=== PATIENT | female | born 1965 | race Caucasian/White ===

== ENCOUNTER 2017-07-29 21:21 | Inpatient (IN) ==
[2017-07-30] MEDS ORDERED: Acetaminophen 325 MG TABLET PO PRN (02:51)
[2017-07-30] MEDS ORDERED: *HR* Dextrose 50 % in Water (Syg) 50 ML SYRINGE IVP PRN (02:57)
[2017-07-30] MEDS ORDERED: Dextrose Gel 15 GM/37.5 ML TUBE PO PRN (02:57)
[2017-07-30] MEDS ORDERED: D5% in Water 1,000 ML IVC PRN (02:57)
[2017-07-30] MEDS ORDERED: Ipratropium/Albuterol Neb 3 ML IH PRN (03:00)
[2017-07-30] MEDS: 0.9 % Sodium Chloride 1,000 ML IVC SCH ×2 (03:30→15:41)
[2017-07-30 04:53] LABS: BUN/Creatinine Ratio 16 (6-26); Blood Urea Nitrogen 17 mg/dL (6-20); Calcium 8.9 mg/dL (8.6-10.3); Carbon Dioxide 26 mEq/L (23-29); Chloride 101 mEq/L (98-107); Glucose 368 mg/dL (70-105); Magnesium 1.8 mg/dL (1.6-2.6); Osmolality,Calculated 297 (280-300); Potassium 3.8 mEq/L (3.5-5.1); Sodium 135 mEq/L (136-145); eGFR For African Americans > 60 (> 60); eGFR For Non-African Americans 55 (> 60)
[2017-07-30 05:00] LABS: Basophils % 0.2 %; Hematocrit 37.2 % (35.3-44.9); Hemoglobin 11.7 g/dL (11.5-15.4); Lymphocytes # 0.9 K/mcL (0.6-4.6); Lymphocytes % 9.2 %; Mean Corpuscular HGB Conc 31.5 g/dL (31.6-35.5); Mean Corpuscular Hemoglobin 26.2 pg (28.0-33.3); Mean Corpuscular Volume 83.2 fL (83.0-100.0); Mean Platelet Volume 9.9 fL (9.4-12.4); Monocytes % 0.4 %; Neutrophils # 8.8 K/mcL (1.6-8.9); Platelet Count 369 K/mcL (140-400); Red Blood Count 4.47 M/mcL (3.82-4.97); Red Cell Distribution Width 16.2 % (11.5-14.5); Segmented Neutrophils % 89.2 %
--- NOTE | 2017-07-30 05:09 | Internal Med History&Physical ---
Date of Encounter: 07/30/17 Time of Encounter: 02:00 Assessment and Plan (1) Altered mental status Current visit: Yes Status: Acute Probably due to UTI. Patient has similar problem with UTI previously. Head CT negative. - We will treat underlying UTI. - Continue closely monitor patient. - No local neuro deficits identified. Qualifiers: Altered mental status type: disorientation Qualified Code(s): R41.0 - Disorientation, unspecified (2) COPD (chronic obstructive pulmonary disease) Current visit: Yes Status: Acute Stable. No signs of exacerbation. Continue home medications. Qualifiers: COPD type: emphysema Emphysema type: unspecified Qualified Code(s): J43.9 - Emphysema, unspecified (3) Near syncope Current visit: Yes Status: Acute Patient has a generalized weakness and near syncope. Probably due to UTI. Vitals are stable at this point. However, need to rule out neuro-cardio etiology - Place patient on continuous cardiac monitoring - Echocardiogram - Duplex carotid bilaterally (4) DVT prophylaxis Current visit: Yes Status: Acute Heparin subcutaneously (5) UTI (urinary tract infection) Current visit: No Status: Acute Patient has recurrent UTI. Failed outpatient treatment. Will place patient on broad spectrum antibiotics with Zosyn. Follow-up urine culture Qualifiers: Urinary tract infection type: acute cystitis Hematuria presence: without hematuria Qualified Code(s): N30.00 - Acute cystitis without hematuria (6) CKD (chronic kidney disease) stage 3, GFR 30-59 ml/min Current visit: No Status: Chronic Stable. Creatinine is at baseline Internal Medicine - H&P: HPI Chief complaint: Altered mental status Admitted From: Home Plans for Post Hospital Care: Home History of present illness: Ms. Beauchamp is a 52 year old female with history of recurrent UTI, diabetes, CKD , and COPD presented to [place] emergency room for altered mental status and near syncope. Patient has history of recurrent UTI. Patient was treated with Rocephin and Cipro as outpatient but not effective. Patient has altered mental status, generalized weakness, and near syncope. Patient has similar symptoms when she has UTI several months ago. Patient was transferred to our hospital for further management. Past Med Surg Social Fam HX - Past Medical History Medical history: cancer, cardiomyopathy, COPD, diabetes, hypertension, renal disease, other Psychiatric history: bipolar - Social History Smoking Status: Current every day smoker Smokeless Tobacco Status: No Alcohol use: none Drug use: none - Family History Father Hx Family Cardiac Disorders: Yes (HTN, [place], hyperlipidemia) Hx Family Respiratory Disorders: No Hx Family Cancer: No Hx Family GI Disorders: No Hx Family Endocrine Disorder: No Hx Family Neuromuscular Disorders: No Hx Family Neurologic Disorders: No Hx Family HEENT Disorders: No Hx Family Autoimmune Disorders: No Mother Hx Family Cardiac Disorders: No Hx Family Respiratory Disorders: No Hx Family Cancer: Yes (Uterine) Hx Family GI Disorders: No Hx Family Endocrine Disorder: No Hx Family Neuromuscular Disorders: No Hx Family Neurologic Disorders: No Hx Family HEENT Disorders: No Hx Family Autoimmune Disorders: No Internal Medicine - H&P: Meds Benztropine [Cogentin] 1 mg PO BID 11/25/15 [History] Carvedilol [Coreg] 12.5 mg PO BID 11/25/15 [History] Esomeprazole Magnesium [Nexium] 40 mg PO QPM 11/25/15 [History] FLUoxetine HCl [Prozac] 80 mg PO DAILY 11/25/15 [History] Gabapentin [Neurontin] 600 mg PO TID 11/25/15 [History] Haloperidol [Haldol] 5 mg PO QAM 11/25/15 [History] Metformin HCl [Glucophage] 1,000 mg PO BID 11/25/15 [History] Montelukast [Singulair] 10 mg PO DAILY 11/25/15 [History] Oxycodone HCl 15 mg PO Q4-6H PRN 11/25/15 [History] Potassium Chloride [Klor-Con] 20 meq PO DAILY 11/25/15 [History] Prochlorperazine Maleate [Compazine] 10 mg PO Q6HR 11/25/15 [History] Theophylline Anhydrous [Theophylline] 300 mg PO BID 11/25/15 [History] Tizanidine HCl [Zanaflex] 4 mg PO TID PRN 11/25/15 [History] Insulin Aspart Prot/Insuln Asp [Novolog Mix 70-30 Flexpen Syrn] 30 unit SQ QPM 05/07/17 [History] Insulin Aspart Prot/Insuln Asp [Novolog Mix 70-30 Flexpen Syrn] 50 unit SQ QAM 05/07/17 [History] Insulin Regular, Human [Novolin R] 10 unit IJ TID 05/07/17 [History] LORazepam [Ativan] 0.5 mg PO BID PRN 05/07/17 [History] Calcium Carbonate [Calcium] 600 mg PO QDPC 05/08/17 [History] Haloperidol [Haldol] 2.5 mg PO QPM 05/08/17 [History] Megestrol Acetate [Megace] 40 mg PO TID PRN 05/08/17 [History] Multivitamin/Iron/Folic Acid [Centrum Complete Multivit Tab] 1 each PO QDPC 07/13 [History] Azithromycin [Zithromax] 250 mg PO Q24H #3 tablet 05/09/17 [Rx] Cefuroxime PO [Ceftin] 500 mg PO Q12HR #6 tablet 05/09/17 [Rx] Furosemide [Lasix] 20 mg PO DAILY #0 05/09/17 [Rx] Lactobacillus [Culturelle] 1 each PO BID #6 cap.sprink 05/09/17 [Rx] 3 Allergy/AdvReac Type Severity Reaction Status Date / Time iodine Allergy Nausea Verified 01/02/16 13:45 Sulfa (Sulfonamide Allergy Nausea Verified 01/02/16 13:45 Antibiotics) All Systems PM: A 10-system review of systems was performed and is negative for pertinent findings except as documented above in the HPI. - Constitutional Vitals: Temp Pulse Resp BP Pulse Ox 99.2 F 85 17 130/76 94 07/30/17 03:43 07/30/17 03:43 07/30/17 03:43 07/30/17 03:43 07/30/17 03:43 General appearance: Present: A&O X 2, no acute distress, answers questions appropriately - Head Head exam: Present: atraumatic, normocephalic - Eye Eye exam: Present: PERRL, conjuntiva pink, sclera anicteric Pupils: Present: PERRL - Neck Neck exam general surgery: Present: supple, trachea midline. Absent: lymphadenopathy - Respiratory Respiratory exam: Present: CTAB. Absent: accessory muscle use, rales, rhonchi, wheezes - Cardiovascular Cardiovascular exam: Present: RRR, +S1, +S2. Absent: diastolic murmur, gallop, rubs, systolic murmur - GI/Abdominal GI/Abdominal exam: Present: normal bowel sounds, soft, no peritoneal signs. Absent: distended, tenderness - Extremities Exam Extremities exam: Present: warm, radial pulses palpable and symmetrical. Absent : calf tenderness, cyanotic, pedal edema - Neurological Exam Neurological exam: Present: CN II-XII intact, oriented X3, no focal deficits. Absent: pronater drift, facial droop, speech deficit - Skin Skin exam: Present: dry, intact Internal Med - H&P Results - Labs CBC & Chem 7: 07/30/17 04:05 07/30/17 04:05 Labs: Short CBC 07/30/17 Range/Units 04:05 WBC 9.9 (4.3-11.1) K/mcL Hgb 11.7 (11.5-15.4) g/dL Hct 37.2 (35.3-44.9) % Plt Count 369 (140-400) K/mcL Neutrophils # 8.8 (1.6-8.9) K/mcL BMP 07/30/17 04:05 Sodium 135 L Potassium 3.8 Chloride 101 Carbon Dioxide 26 BUN 17 Creatinine 1.05 Glucose 368 H Calcium 8.9
[2017-07-30] MEDS: *HR* Heparin 5,000 UNIT/ML VIAL SQ SCH ×2 (06:18→19:31)
[2017-07-30] MEDS ORDERED: Piperacillin/Tazobactam 3.375 GM in D5% in Water (Mini-Bag+) 100 ML IVPB SCH (08:00)
[2017-07-30] MEDS: Insulin LISPRO 300 UNITS/3 ML VIAL SQ SCH ×4 (08:38→21:21)
[2017-07-30] MEDS: Piperacillin/Tazobactam 3.375 GM/200 ML BAG IVPB SCH ×2 (08:39→19:32)
[2017-07-30] MEDS ORDERED: Insulin DETEMIR 100 UNIT/ML X5UNITS SQ SCH (09:00)
[2017-07-30] MEDS ORDERED: tiZANidine 4 MG TABLET PO PRN (10:59)
[2017-07-30] MEDS ORDERED: *HR* OxyCODONE Immed Rel 15 MG TABLET PO PRN (10:59)
[2017-07-30] MEDS ORDERED: Albuterol Neb 0.63 MG/3 ML VIAL IH PRN (10:59)
[2017-07-30] MEDS ORDERED: *HR* LORazepam 0.5 MG TABLET PO PRN (10:59)
--- NOTE | 2017-07-30 11:13 | Event Note ---
Date of Encounter: 07/30/17 Time of Encounter: 11:09 52/female PCP: Nurse ramone Ellison Brief past medical history: COPD, diabetes, hypertension, cardiomyopathy, coronary artery disease, History of present medical illness: Patient has multiple episodes in the past of a urinary tract infection. Patient was supposed to see urologist yesterday. Just before patient get out of her house to see the urologist, it was noted by patient's that patient has altered mental status. Patient's ' s is aware with this kind of mental change is related to the urinary tract infection from the previous experiences. He called squad and brought the patient to the hospital for further evaluation. Patient was seen at [facility] emergency room. Patient was transferred to this hospital for further evaluation. This morning upon my evaluation patient is alert and oriented 3. Patient's is at bedside. A brief general examination along with the examination of cardiovascular/ respiratory/abdominal system is within normal limits. Assessment: Recurrent urinary tract infection in a patient with the multiple comorbid conditions. Plan: We will continue IV Zosyn at this time. We will resume home medication. Possible urology consult tomorrow. Plan discussed with the patient and patient's . They verbalized understanding.
[2017-07-30] MEDS ORDERED: Insulin Regular, Human 100 UNIT/ML SQ SCH (15:00)
[2017-07-30] MEDS: Insulin NPH/REG 70/30 100 UNIT/ML (x5UNIT) SQ SCH (19:31)
[2017-07-30] MEDS: Gabapentin 300 MG CAPSULE PO SCH ×2 (19:35→20:43)
[2017-07-30] MEDS: GuaiFENesin Liq 200 MG/10 ML UDC PO SCH (20:44)
[2017-07-31] MEDS: Piperacillin/Tazobactam 3.375 GM/200 ML BAG IVPB SCH ×4 (01:19→23:53)
[2017-07-31 05:40] LABS: Basophils # 0.1 K/mcL (0.0-0.2); Basophils % 0.3 %; Eosinophils # 0.1 K/mcL (0.0-0.6); Eosinophils % 0.5 %; Hematocrit 39.5 % (35.3-44.9); Hemoglobin 12.7 g/dL (11.5-15.4); Immature Granulocytes % 0.6 % (0-4); Lymphocytes # 1.1 K/mcL (0.6-4.6); Lymphocytes % 6.1 %; Mean Corpuscular HGB Conc 32.2 g/dL (31.6-35.5); Mean Corpuscular Hemoglobin 26.7 pg (28.0-33.3); Mean Corpuscular Volume 83.2 fL (83.0-100.0); Mean Platelet Volume 9.4 fL (9.4-12.4); Monocytes # 0.8 K/mcL (0.0-1.3); Monocytes % 4.4 %; Neutrophils # 15.2 K/mcL (1.6-8.9); Platelet Count 352 K/mcL (140-400); Red Blood Count 4.75 M/mcL (3.82-4.97); Red Cell Distribution Width 16.6 % (11.5-14.5); Segmented Neutrophils % 88.1 %
[2017-07-31 05:41] LABS: Alanine Aminotransferase 11 Units/L (7-52); Albumin 3.7 g/dL (3.5-5.7); Albumin/Globulin Ratio 1.4 (1.1-2.2); Alkaline Phosphatase 95 Units/L (34-104); Aspartate Amino Transferase 12 Units/L (13-39); BUN/Creatinine Ratio 15 (6-26); Bilirubin,Total 0.4 mg/dL (0.3-1.0); Blood Urea Nitrogen 14 mg/dL (6-20); Carbon Dioxide 29 mEq/L (23-29); Chloride 107 mEq/L (98-107); Globulin 2.6 g/dL (2.4-3.5); Glucose 116 mg/dL (70-105); Osmolality,Calculated 295 (280-300); Potassium 3.4 mEq/L (3.5-5.1); Sodium 142 mEq/L (136-145); Total Protein 6.3 g/dL (6.4-8.9); eGFR For African Americans > 60 (> 60); eGFR For Non-African Americans > 60 (> 60)
[2017-07-31] MEDS: *HR* Heparin 5,000 UNIT/ML VIAL SQ SCH ×2 (06:18→16:39)
[2017-07-31] MEDS: Insulin LISPRO 300 UNITS/3 ML VIAL SQ SCH ×4 (07:43→20:54)
[2017-07-31] MEDS: Furosemide 40 MG TABLET PO SCH ×2 (10:00→11:01)
[2017-07-31] MEDS: GuaiFENesin Liq 200 MG/10 ML UDC PO SCH ×3 (10:00→19:59)
[2017-07-31] MEDS: FLUoxetine 20 MG CAPSULE PO SCH ×2 (10:00→11:01)
[2017-07-31] MEDS: Gabapentin 300 MG CAPSULE PO SCH ×3 (10:01→20:00)
[2017-07-31] MEDS: Insulin NPH/REG 70/30 100 UNIT/ML (x5UNIT) SQ SCH ×2 (10:29→16:40)
--- NOTE | 2017-07-31 16:13 | Internal Med Progress Note ---
Date of Encounter: 07/31/17 Time of Encounter: 16:10 - Assessment and plan (1) UTI (urinary tract infection) Current Visit: No Status: Acute Assessment and plan: Patient was evaluated in the emergency room at [facility]. She was transferred here for altered mental status. Patient is known to have altered mental status when she has underlying urinary tract infection. This is a fourth episode of urinary tract infection. Previous UTI showed Escherichia coli pansensitive strain. This episode urine culture positive for gram-negative bradford. Patient is presently on Zosyn. In view of the recurrent urinary tract infection and underlying malignancy I called urology for further evaluation Qualifiers: Urinary tract infection type: acute cystitis Hematuria presence: without hematuria Qualified Code(s): N30.00 - Acute cystitis without hematuria (2) Altered mental status Current Visit: Yes Status: Acute Assessment and plan: Likely secondary to urinary tract infection/urosepsis Qualifiers: Altered mental status type: disorientation Qualified Code(s): R41.0 - Disorientation, unspecified (3) Lung cancer Current Visit: No Status: Acute Assessment and plan: Follow with oncology Qualifiers: Laterality: unspecified laterality Lung location: unspecified part of lung Qualified Code(s): C34.90 - Malignant neoplasm of unspecified part of unspecified bronchus or lung (4) Diabetes type 2, uncontrolled Current Visit: No Status: Chronic Assessment and plan: Uncontrolled diabetes mellitus Presently on subcutaneous insulin. Qualifiers: Diabetes mellitus complication status: with unspecified complications Diabetes mellitus fci insulin use: unspecified intermediate school teacher insulin use status Qualified Code(s): E11.8 - Type 2 diabetes mellitus with unspecified complications; E11.65 - Type 2 diabetes mellitus with hyperglycemia; E11.65 - Type 2 diabetes mellitus with hyperglycemia; E11.65 - Type 2 diabetes mellitus with hyperglycemia; E11.65 - Type 2 diabetes mellitus with hyperglycemia - Subjective Interval history: Patient seen and examined. Chart reviewed. patient is comfortably lying in the bed. Patient at bedside. - Constitutional Vitals: Temp Pulse Resp BP Pulse Ox 98.2 F 87 16 138/77 90 07/31/17 15:33 07/31/17 15:33 07/31/17 15:33 07/31/17 15:33 07/31/17 15:33 General appearance: Present: A&O X 2, no acute distress, answers questions appropriately - Head Head exam: Present: atraumatic, normocephalic - Eye Eye exam: Present: PERRL, conjuntiva pink, sclera anicteric Pupils: Present: PERRL - Neck Neck exam general surgery: Present: supple, trachea midline. Absent: lymphadenopathy - Respiratory Respiratory exam: Present: CTAB. Absent: accessory muscle use, rales, rhonchi, wheezes - Cardiovascular Cardiovascular exam: Present: RRR, +S1, +S2. Absent: diastolic murmur, gallop, rubs, systolic murmur - GI/Abdominal GI/Abdominal exam: Present: normal bowel sounds, soft, no peritoneal signs. Absent: distended, tenderness - Extremities Exam Extremities exam: Present: warm, radial pulses palpable and symmetrical. Absent : calf tenderness, cyanotic, pedal edema - Neurological Exam Neurological exam: Present: CN II-XII intact, oriented X3, no focal deficits. Absent: pronater drift, facial droop, speech deficit - Skin Skin exam: Present: dry, intact Internal Medicine: Result - Labs CBC & Chem 7: 07/31/17 05:10 07/31/17 05:10 Labs: Short CBC 07/31/17 Range/Units 05:10 WBC 17.2 H D (4.3-11.1) K/mcL Hgb 12.7 (11.5-15.4) g/dL Hct 39.5 (35.3-44.9) % Plt Count 352 (140-400) K/mcL Neutrophils # 15.2 H (1.6-8.9) K/mcL BMP 07/31/17 05:10 Sodium 142 Potassium 3.4 L Chloride 107 Carbon Dioxide 29 BUN 14 Creatinine 0.95 Glucose 116 H Calcium 9.0 Liver Function 07/31/17 Range/Units 05:10 Total Bilirubin 0.4 (0.3-1.0) mg/dL AST 12 L (13-39) Units/L ALT 11 (7-52) Units/L Alkaline Phosphatase 95 (34-104) Units/L Albumin 3.7 (3.5-5.7) g/dL Consult Discharge Plan - Plan Referrals: Emmanuelle Ellison, HAT BINDER [Primary Care Provider] - 08/06/17 10:00 am (please follow up with Darlene Santana at [email or web address])
--- NOTE | 2017-07-31 17:20 | Urology - Consult Note ---
Date of Encounter: 07/31/17 Time of Encounter: 17:18 - Assessment and Plan (1) Recurrent UTI Current Visit: Yes Status: Acute Assessment and plan: Patient does not arouse enough to answer questions at this time. I am going to obtain a CT abdomen and pelvis for evaluation of cause for recurrent urinary tract infections. Patient does have a questionable history of a stroke as well as poorly controlled diabetes both of which are risk factors for urinary retention and then recurrent urinary tract infections. (2) UTI (urinary tract infection) Current Visit: No Status: Acute Assessment and plan: await cultures for defenitive tx. agree with broad spectrum abx. Qualifiers: Urinary tract infection type: acute cystitis Hematuria presence: without hematuria Qualified Code(s): N30.00 - Acute cystitis without hematuria Urology CN:HPI Consult date: 07/31/17 Reason for consult Urology: Other (recurrent uti) Requesting physician: Jose Roberto Barrera History of present illness: Johana is a 52-year-old female with history of 3 separate admissions for urinary tract infections. Patient with mental status changes with these infections. Patient does not arouse enough to answer questions today. No prior upper tract imaging seen in the record. Patient also with poorly controlled diabetes. Past Med Surg Social Fam HX - Past Medical History Medical history: cancer, cardiomyopathy, COPD, diabetes, hypertension, renal disease, other Psychiatric history: bipolar - Social History Smoking Status: Current every day smoker Smokeless Tobacco Status: No Alcohol use: none Drug use: none - Family History Father Hx Family Cardiac Disorders: Yes (HTN, [place], hyperlipidemia) Hx Family Respiratory Disorders: No Hx Family Cancer: No Hx Family GI Disorders: No Hx Family Endocrine Disorder: No Hx Family Neuromuscular Disorders: No Hx Family Neurologic Disorders: No Hx Family HEENT Disorders: No Hx Family Autoimmune Disorders: No Mother Hx Family Cardiac Disorders: No Hx Family Respiratory Disorders: No Hx Family Cancer: Yes (Uterine) Hx Family GI Disorders: No Hx Family Endocrine Disorder: No Hx Family Neuromuscular Disorders: No Hx Family Neurologic Disorders: No Hx Family HEENT Disorders: No Hx Family Autoimmune Disorders: No Medications and Allergies Benztropine [Cogentin] 1 mg PO BID 11/25/15 [History] Carvedilol [Coreg] 12.5 mg PO BID 11/25/15 [History] Esomeprazole Magnesium [Nexium] 40 mg PO HS 11/25/15 [History] FLUoxetine HCl [Prozac] 80 mg PO DAILY 11/25/15 [History] Gabapentin [Neurontin] 600 mg PO TID 11/25/15 [History] Haloperidol [Haldol] 5 mg PO QAM 11/25/15 [History] Metformin HCl [Glucophage] 1,000 mg PO BID 11/25/15 [History] Montelukast [Singulair] 10 mg PO DAILY 11/25/15 [History] Oxycodone HCl 15 mg PO Q8H PRN 11/25/15 [History] Potassium Chloride [Klor-Con] 20 meq PO DAILY 11/25/15 [History] Prochlorperazine Maleate [Compazine] 10 mg PO Q6HR PRN 11/25/15 [History] Theophylline Anhydrous [Theophylline] 300 mg PO BID 11/25/15 [History] Tizanidine HCl [Zanaflex] 4 mg PO TID PRN 11/25/15 [History] Insulin Aspart Prot/Insuln Asp [Novolog Mix 70-30 Flexpen Syrn] 30 unit SQ QPM 05/07/17 [History] Insulin Aspart Prot/Insuln Asp [Novolog Mix 70-30 Flexpen Syrn] 50 unit SQ QAM 05/07/17 [History] Insulin Regular, Human [Novolin R] 10 unit SQ TID 05/07/17 [History] LORazepam [Ativan] 0.5 mg PO BID PRN 05/07/17 [History] Calcium Carbonate [Calcium] 600 mg PO QDPC 05/08/17 [History] Haloperidol [Haldol] 2.5 mg PO HS 05/08/17 [History] Megestrol Acetate [Megace] 40 mg PO TID PRN 05/08/17 [History] Multivitamin/Iron/Folic Acid [Centrum Complete Multivit Tab] 1 each PO QDPC 07/13 [History] Albuterol Neb [AccuNeb] 0.63 mg IH Q6H PRN 07/30/17 [History] Albuterol Sulfate [Proair Hfa] 2 puff IH Q4H PRN 07/30/17 [History] Furosemide [Lasix] 40 mg PO DAILY 07/30/17 [History] Nitrofurantoin (BID) [Macrobid] 100 mg PO DAILY 07/30/17 [History] guaiFENesin [Guaifenesin] 400 mg PO BID 07/30/17 [History] 3 Allergy/AdvReac Type Severity Reaction Status Date / Time iodine Allergy Nausea Verified 01/02/16 13:45 Sulfa (Sulfonamide Allergy Nausea Verified 01/02/16 13:45 Antibiotics) Review of Systems ROS unobtainable: due to mental status Exam Initial Vital Signs Temp Pulse Resp BP Pulse Ox 98.3 F 90 17 134/81 93 07/29/17 23:05 07/29/17 23:05 07/29/17 23:05 07/29/17 23:05 07/29/17 23:05 - General physical appearance Present: other (sleepy) - Eyes Absent: icteric - Neck Present: no lymphadenopathy - Respiratory Present: normal respiratory effort - Cardiovascular Cardiovascular exam IM: RRR - Abdomen Abdomen: Present: soft. Absent: masses - Integumentary Present: no rash, no abnormal pigmentation Urology Results - Labs 07/31/17 05:10 07/31/17 05:10 Abnormal lab results WBC 17.2 K/mcL (4.3-11.1) H D 07/31/17 05:10 MCH 26.7 pg (28.0-33.3) L 07/31/17 05:10 RDW 16.6 % (11.5-14.5) H 07/31/17 05:10 Neutrophils # 15.2 K/mcL (1.6-8.9) H 07/31/17 05:10 Potassium 3.4 mEq/L (3.5-5.1) L 07/31/17 05:10 Glucose 116 mg/dL (70-105) H 07/31/17 05:10 POC Glucose 106 (58-89) H 07/31/17 16:29 AST 12 Units/L (13-39) L 07/31/17 05:10 Serum Total Protein 6.3 g/dL (6.4-8.9) L 07/31/17 05:10 Diabetes panel 07/31/17 Range/Units 05:10 Sodium 142 (136-145) mEq/L Potassium 3.4 L (3.5-5.1) mEq/L Chloride 107 (98-107) mEq/L Carbon Dioxide 29 (23-29) mEq/L BUN 14 (6-20) mg/dL Creatinine 0.95 (0.60-1.20) mg/dL Glucose 116 H (70-105) mg/dL Calcium 9.0 (8.6-10.3) mg/dL AST 12 L (13-39) Units/L ALT 11 (7-52) Units/L Alkaline Phosphatase 95 (34-104) Units/L Albumin 3.7 (3.5-5.7) g/dL Calcium panel 07/31/17 Range/Units 05:10 Calcium 9.0 (8.6-10.3) mg/dL Albumin 3.7 (3.5-5.7) g/dL Pituitary panel 07/31/17 Range/Units 05:10 Sodium 142 (136-145) mEq/L Potassium 3.4 L (3.5-5.1) mEq/L Chloride 107 (98-107) mEq/L Carbon Dioxide 29 (23-29) mEq/L BUN 14 (6-20) mg/dL Creatinine 0.95 (0.60-1.20) mg/dL Glucose 116 H (70-105) mg/dL Calcium 9.0 (8.6-10.3) mg/dL Adrenal panel 07/31/17 Range/Units 05:10 Sodium 142 (136-145) mEq/L Potassium 3.4 L (3.5-5.1) mEq/L Chloride 107 (98-107) mEq/L Carbon Dioxide 29 (23-29) mEq/L BUN 14 (6-20) mg/dL Creatinine 0.95 (0.60-1.20) mg/dL Glucose 116 H (70-105) mg/dL Calcium 9.0 (8.6-10.3) mg/dL Total Bilirubin 0.4 (0.3-1.0) mg/dL AST 12 L (13-39) Units/L ALT 11 (7-52) Units/L Alkaline Phosphatase 95 (34-104) Units/L Albumin 3.7 (3.5-5.7) g/dL All other labs normal. Consult Discharge Plan - Plan Referrals: Emmanuelle Ellison, SPRIGGER [Primary Care Provider] - 08/06/17 10:00 am (please follow up with Darlene Santana at [email or web address])
[2017-08-01 03:58] LABS: Basophils % 0.5 %; Eosinophils # 0.3 K/mcL (0.0-0.6); Eosinophils % 3.1 %; Hematocrit 36.2 % (35.3-44.9); Immature Granulocytes % 0.6 % (0-4); Lymphocytes # 1.9 K/mcL (0.6-4.6); Lymphocytes % 24.3 %; Mean Corpuscular HGB Conc 30.7 g/dL (31.6-35.5); Mean Corpuscular Hemoglobin 26.1 pg (28.0-33.3); Mean Platelet Volume 8.9 fL (9.4-12.4); Monocytes # 0.7 K/mcL (0.0-1.3); Monocytes % 8.2 %; Platelet Count 303 K/mcL (140-400); Red Blood Count 4.26 M/mcL (3.82-4.97); Red Cell Distribution Width 16.9 % (11.5-14.5); Segmented Neutrophils % 63.3 %
[2017-08-01 04:04] LABS: Hemoglobin 11.1 g/dL (11.5-15.4); Neutrophils # 5.1 K/mcL (1.6-8.9)
[2017-08-01 04:33] LABS: Alanine Aminotransferase 8 Units/L (7-52); Albumin 3.1 g/dL (3.5-5.7); Albumin/Globulin Ratio 1.2 (1.1-2.2); Alkaline Phosphatase 74 Units/L (34-104); Aspartate Amino Transferase 9 Units/L (13-39); BUN/Creatinine Ratio 17 (6-26); Bilirubin,Total 0.4 mg/dL (0.3-1.0); Blood Urea Nitrogen 17 mg/dL (6-20); Calcium 8.4 mg/dL (8.6-10.3); Carbon Dioxide 28 mEq/L (23-29); Chloride 108 mEq/L (98-107); Globulin 2.6 g/dL (2.4-3.5); Glucose 114 mg/dL (70-105); Osmolality,Calculated 296 (280-300); Potassium 3.4 mEq/L (3.5-5.1); Sodium 142 mEq/L (136-145); Total Protein 5.7 g/dL (6.4-8.9); eGFR For African Americans > 60 (> 60); eGFR For Non-African Americans 57 (> 60)
[2017-08-01] MEDS: *HR* Heparin 5,000 UNIT/ML VIAL SQ SCH ×2 (05:45→17:13)
[2017-08-01] MEDS: Insulin LISPRO 300 UNITS/3 ML VIAL SQ SCH ×4 (07:27→21:31)
[2017-08-01] MEDS: Piperacillin/Tazobactam 3.375 GM/200 ML BAG IVPB SCH ×3 (07:34→23:14)
--- NOTE | 2017-08-01 08:04 | Urology Progress Note ---
Date of Encounter: 08/01/17 Time of Encounter: 08:04 - Assessment and Plan (1) Recurrent UTI Current Visit: Yes Status: Acute Assessment and plan: Broad-spectrum antibiotics at this time until culture returns. Patient will need follow-up with urology office after discharge for evaluation of recurrent urinary tract infections. (2) UTI (urinary tract infection) Current Visit: No Status: Acute Qualifiers: Urinary tract infection type: acute cystitis Hematuria presence: without hematuria Qualified Code(s): N30.00 - Acute cystitis without hematuria Progress Note Narrative: Johana is a 52-year-old female with a history of recurrent urinary tract infections. CT scan done yesterday revealed air within the bladder. Urine culture reveals gram-negative rods. Objective Initial Vital Signs Temp Pulse Resp BP Pulse Ox 98.3 F 90 17 134/81 93 07/29/17 23:05 07/29/17 23:05 07/29/17 23:05 07/29/17 23:05 07/29/17 23:05 - General physical appearance Present: well developed - Abdomen Present: soft. Absent: masses - Labs 08/01/17 03:40 08/01/17 03:40 Diabetes panel 08/01/17 Range/Units 03:40 Sodium 142 (136-145) mEq/L Potassium 3.4 L (3.5-5.1) mEq/L Chloride 108 H (98-107) mEq/L Carbon Dioxide 28 (23-29) mEq/L BUN 17 (6-20) mg/dL Creatinine 1.01 (0.60-1.20) mg/dL Glucose 114 H (70-105) mg/dL Calcium 8.4 L (8.6-10.3) mg/dL AST 9 L (13-39) Units/L ALT 8 (7-52) Units/L Alkaline Phosphatase 74 (34-104) Units/L Albumin 3.1 L (3.5-5.7) g/dL Calcium panel 08/01/17 Range/Units 03:40 Calcium 8.4 L (8.6-10.3) mg/dL Albumin 3.1 L (3.5-5.7) g/dL Pituitary panel 08/01/17 Range/Units 03:40 Sodium 142 (136-145) mEq/L Potassium 3.4 L (3.5-5.1) mEq/L Chloride 108 H (98-107) mEq/L Carbon Dioxide 28 (23-29) mEq/L BUN 17 (6-20) mg/dL Creatinine 1.01 (0.60-1.20) mg/dL Glucose 114 H (70-105) mg/dL Calcium 8.4 L (8.6-10.3) mg/dL Adrenal panel 08/01/17 Range/Units 03:40 Sodium 142 (136-145) mEq/L Potassium 3.4 L (3.5-5.1) mEq/L Chloride 108 H (98-107) mEq/L Carbon Dioxide 28 (23-29) mEq/L BUN 17 (6-20) mg/dL Creatinine 1.01 (0.60-1.20) mg/dL Glucose 114 H (70-105) mg/dL Calcium 8.4 L (8.6-10.3) mg/dL Total Bilirubin 0.4 (0.3-1.0) mg/dL AST 9 L (13-39) Units/L ALT 8 (7-52) Units/L Alkaline Phosphatase 74 (34-104) Units/L Albumin 3.1 L (3.5-5.7) g/dL Consult Discharge Plan - Plan Referrals: Emmanuelle Ellison, NAVAL ARCHITECT [Primary Care Provider] - 08/06/17 10:00 am (please follow up with Darlene Santana at [email or web address])
[2017-08-01] MEDS: Gabapentin 300 MG CAPSULE PO SCH ×3 (09:56→21:16)
[2017-08-01] MEDS: Furosemide 40 MG TABLET PO SCH (09:56)
[2017-08-01] MEDS: Insulin NPH/REG 70/30 100 UNIT/ML (x5UNIT) SQ SCH ×2 (09:57→17:13)
[2017-08-01] MEDS: FLUoxetine 20 MG CAPSULE PO SCH (09:57)
[2017-08-01] MEDS: GuaiFENesin Liq 200 MG/10 ML UDC PO SCH ×2 (09:58→21:17)
[2017-08-01] MEDS: Dextrose Gel 15 GM/37.5 ML TUBE PO PRN (21:11)
[2017-08-02] MEDS: *HR* Heparin 5,000 UNIT/ML VIAL SQ SCH ×2 (05:28→16:47)
--- NOTE | 2017-08-02 08:48 | Urology Progress Note ---
Date of Encounter: 08/02/17 Time of Encounter: 08:48 - Assessment and Plan (1) Recurrent UTI Current Visit: Yes Status: Acute Assessment and plan: may need to consider getting infectious disease involved given the severe resistance her last culture showed. will continue to follow. (2) UTI (urinary tract infection) Current Visit: No Status: Acute Qualifiers: Urinary tract infection type: acute cystitis Hematuria presence: without hematuria Qualified Code(s): N30.00 - Acute cystitis without hematuria Progress Note Narrative: patient seen. asleep this am. cath urine obtained yesterday. last culture from 07/29/17 showed complete resistance to all tested abx. Objective Initial Vital Signs Temp Pulse Resp BP Pulse Ox 98.3 F 90 17 134/81 93 07/29/17 23:05 07/29/17 23:05 07/29/17 23:05 07/29/17 23:05 07/29/17 23:05 - General physical appearance Present: no distress - Abdomen Present: soft. Absent: masses - Labs 08/01/17 03:40 08/01/17 03:40 Consult Discharge Plan - Plan Referrals: Emmanuelle Ellison, CIVIL PROJECT ENGINEER [Primary Care Provider] - 08/06/17 10:00 am (please follow up with Darlene Santana at [place])
[2017-08-02] MEDS: FLUoxetine 20 MG CAPSULE PO SCH (09:59)
[2017-08-02] MEDS: GuaiFENesin Liq 200 MG/10 ML UDC PO SCH ×2 (10:00→20:26)
[2017-08-02] MEDS: Furosemide 40 MG TABLET PO SCH (10:00)
[2017-08-02] MEDS: Gabapentin 300 MG CAPSULE PO SCH ×3 (10:00→20:25)
[2017-08-02] MEDS: Insulin NPH/REG 70/30 100 UNIT/ML (x5UNIT) SQ SCH ×2 (10:00→16:47)
[2017-08-02] MEDS: Piperacillin/Tazobactam 3.375 GM/200 ML BAG IVPB SCH ×3 (10:01→23:54)
[2017-08-02] MEDS: Insulin LISPRO 300 UNITS/3 ML VIAL SQ SCH ×4 (10:01→21:54)
--- NOTE | 2017-08-02 18:40 | Internal Med Progress Note ---
Date of Encounter: 08/02/17 Time of Encounter: 18:40 - Assessment and plan (1) UTI (urinary tract infection) Current Visit: No Status: Acute Assessment and plan: Patient was evaluated in the emergency room at [facility]. She was transferred here for altered mental status. Patient is known to have altered mental status when she has underlying urinary tract infection. This is a fourth episode of urinary tract infection. Previous UTI showed Escherichia coli pansensitive strain. This episode urine culture positive for gram-negative bradford. Patient is presently on Zosyn. In view of the recurrent urinary tract infection and underlying malignancy I called urology for further evaluation 08/02/2017 As I mentioned this is a delayed entry. I have examined this patient on 08/01/2017 and please treat this note as a 2017's note. Noted that patient has a multi drug resistant organism in the urine. I discussed case with the infectious disease attending Dr. Bauer. We have sent repeat culture. Total number of urinary tract infection episodes: 4 Out of which one episode shows positive urine culture: Escherichia coli: Pansensitive. Patient is immunocompromised host in terms of underlying diabetes/lung cancer. Patient has responded excellent clinically to present treatment which is Zosyn. There is a possibility that patient might have some atelectasis/pneumonia/lung cancer itself in the left lower lobe. Case discussed with infectious disease and recommendations as follows. We will continue the present treatment over the weekend. If patient deteriorates then to add a fosfomycin. If patient continues to improve then we will continue the same treatment and infectious disease will see patient on Friday. Qualifiers: Urinary tract infection type: acute cystitis Hematuria presence: without hematuria Qualified Code(s): N30.00 - Acute cystitis without hematuria (2) Altered mental status Current Visit: Yes Status: Acute Assessment and plan: Likely secondary to urinary tract infection/urosepsis Patient's altered mental status has improved dramatically. Qualifiers: Altered mental status type: disorientation Qualified Code(s): R41.0 - Disorientation, unspecified (3) Lung cancer Current Visit: No Status: Acute Assessment and plan: Follow with oncology Qualifiers: Laterality: unspecified laterality Lung location: unspecified part of lung Qualified Code(s): C34.90 - Malignant neoplasm of unspecified part of unspecified bronchus or lung (4) Diabetes type 2, uncontrolled Current Visit: No Status: Chronic Assessment and plan: Uncontrolled diabetes mellitus Presently on subcutaneous insulin. Qualifiers: Diabetes mellitus complication status: with unspecified complications Diabetes mellitus rat exterminator insulin use: unspecified care home insulin use status Qualified Code(s): E11.8 - Type 2 diabetes mellitus with unspecified complications; E11.65 - Type 2 diabetes mellitus with hyperglycemia; E11.65 - Type 2 diabetes mellitus with hyperglycemia; E11.65 - Type 2 diabetes mellitus with hyperglycemia; E11.65 - Type 2 diabetes mellitus with hyperglycemia - Subjective Interval history: Patient seen and examined. Chart reviewed. patient is comfortably lying in the bed. Patient at bedside. 08/02/2017 This is a delayed entry. I have examined this patient on 08/01/2017. I was unable to write a note on the same day but I am completing the note in 24 hours. Patient is alert and more oriented as compared to yesterday. - Constitutional Vitals: Temp Pulse Resp BP Pulse Ox 97.9 F 91 16 79/50 97 08/02/17 15:42 08/02/17 15:42 08/02/17 15:42 08/02/17 15:42 08/02/17 15:42 General appearance: Present: A&O X 2, no acute distress, answers questions appropriately - Head Head exam: Present: atraumatic, normocephalic - Eye Eye exam: Present: PERRL, conjuntiva pink, sclera anicteric Pupils: Present: PERRL - Neck Neck exam general surgery: Present: supple, trachea midline. Absent: lymphadenopathy - Respiratory Respiratory exam: Present: CTAB. Absent: accessory muscle use, rales, rhonchi, wheezes - Cardiovascular Cardiovascular exam: Present: RRR, +S1, +S2. Absent: diastolic murmur, gallop, rubs, systolic murmur - GI/Abdominal GI/Abdominal exam: Present: normal bowel sounds, soft, no peritoneal signs. Absent: distended, tenderness - Extremities Exam Extremities exam: Present: warm, radial pulses palpable and symmetrical. Absent : calf tenderness, cyanotic, pedal edema - Neurological Exam Neurological exam: Present: CN II-XII intact, oriented X3, no focal deficits. Absent: pronater drift, facial droop, speech deficit - Skin Skin exam: Present: dry, intact Internal Medicine: Result - Labs CBC & Chem 7: 08/01/17 03:40 01/05/18 03:40 Consult Discharge Plan - Plan Referrals: Emmanuelle Ellison, EMBEDDED SYSTEMS ENGINEER [Primary Care Provider] - 08/06/17 10:00 am (please follow up with Darlene Santana at [place])
--- NOTE | 2017-08-02 18:48 | Internal Med Progress Note ---
Date of Encounter: 08/02/17 Time of Encounter: 18:45 - Assessment and plan (1) UTI (urinary tract infection) Current Visit: No Status: Acute Assessment and plan: Patient was evaluated in the emergency room at [facility]. She was transferred here for altered mental status. Patient is known to have altered mental status when she has underlying urinary tract infection. This is a fourth episode of urinary tract infection. Previous UTI showed Escherichia coli pansensitive strain. This episode urine culture positive for gram-negative bradford. Patient is presently on Zosyn. In view of the recurrent urinary tract infection and underlying malignancy I called urology for further evaluation 08/02/2017 As I mentioned this is a delayed entry. I have examined this patient on 08/01/2017 and please treat this note as a 2017's note. Noted that patient has a multi drug resistant organism in the urine. I discussed case with the infectious disease attending Dr. Bauer. We have sent repeat culture. Total number of urinary tract infection episodes: 4 Out of which one episode shows positive urine culture: Escherichia coli: Pansensitive. Patient is immunocompromised host in terms of underlying diabetes/lung cancer. Patient has responded excellent clinically to present treatment which is Zosyn. There is a possibility that patient might have some atelectasis/pneumonia/lung cancer itself in the left lower lobe. Case discussed with infectious disease and recommendations as follows. We will continue the present treatment over the weekend. If patient deteriorates then to add a fosfomycin. If patient continues to improve then we will continue the same treatment and infectious disease will see patient on Friday. 08/02/2017 Patient seen and examined today. Patient is more alert and oriented. Patient does not have any urinary symptoms. Patient has cough/shortness of breath/chest pain or hemoptysis Urine culture which was sent on 08/01/2017: No growth and this is the final report. Plan: Will continue present Zosyn for now. I will not disturb infectious disease on a weekend. But I will continue this intravenous Zosyn for her next 48 hours and will update ID on Friday. Qualifiers: Urinary tract infection type: acute cystitis Hematuria presence: without hematuria Qualified Code(s): N30.00 - Acute cystitis without hematuria (2) Altered mental status Current Visit: Yes Status: Acute Assessment and plan: Likely secondary to urinary tract infection/urosepsis Patient's altered mental status has improved dramatically. Qualifiers: Altered mental status type: disorientation Qualified Code(s): R41.0 - Disorientation, unspecified (3) Lung cancer Current Visit: No Status: Acute Assessment and plan: Follow with oncology Qualifiers: Laterality: unspecified laterality Lung location: unspecified part of lung Qualified Code(s): C34.90 - Malignant neoplasm of unspecified part of unspecified bronchus or lung (4) Diabetes type 2, uncontrolled Current Visit: No Status: Chronic Assessment and plan: Uncontrolled diabetes mellitus Presently on subcutaneous insulin. Qualifiers: Diabetes mellitus complication status: with unspecified complications Diabetes mellitus manager terminal insulin use: unspecified retirement insulin use status Qualified Code(s): E11.8 - Type 2 diabetes mellitus with unspecified complications; E11.65 - Type 2 diabetes mellitus with hyperglycemia; E11.65 - Type 2 diabetes mellitus with hyperglycemia; E11.65 - Type 2 diabetes mellitus with hyperglycemia; E11.65 - Type 2 diabetes mellitus with hyperglycemia - Subjective Interval history: Patient seen and examined. Chart reviewed. patient is comfortably lying in the bed. Patient at bedside. 08/02/2017 This is a delayed entry. I have examined this patient on 08/01/2017. I was unable to write a note on the same day but I am completing the note in 24 hours. Patient is alert and more oriented as compared to yesterday. 08/02/2017 I have examined this patient today. Patient's was at bedside. I have explained patient's regarding MDRO Klebsiella pneumonia. Patient is more alert and oriented then past 2 days. - Constitutional Vitals: Temp Pulse Resp BP Pulse Ox 97.9 F 91 16 79/50 97 08/02/17 15:42 08/02/17 15:42 08/02/17 15:42 08/02/17 15:42 08/02/17 15:42 General appearance: Present: A&O X 2, no acute distress, answers questions appropriately - Head Head exam: Present: atraumatic, normocephalic - Eye Eye exam: Present: PERRL, conjuntiva pink, sclera anicteric Pupils: Present: PERRL - Neck Neck exam general surgery: Present: supple, trachea midline. Absent: lymphadenopathy - Respiratory Respiratory exam: Present: CTAB. Absent: accessory muscle use, rales, rhonchi, wheezes - Cardiovascular Cardiovascular exam: Present: RRR, +S1, +S2. Absent: diastolic murmur, gallop, rubs, systolic murmur - GI/Abdominal GI/Abdominal exam: Present: normal bowel sounds, soft, no peritoneal signs. Absent: distended, tenderness - Extremities Exam Extremities exam: Present: warm, radial pulses palpable and symmetrical. Absent : calf tenderness, cyanotic, pedal edema - Neurological Exam Neurological exam: Present: CN II-XII intact, oriented X3, no focal deficits. Absent: pronater drift, facial droop, speech deficit - Skin Skin exam: Present: dry, intact Internal Medicine: Result - Labs CBC & Chem 7: 08/01/17 03:40 08/01/17 03:40 Consult Discharge Plan - Plan Referrals: Emmanuelle Ellison, ENDLESS STEAMER TENDER [Primary Care Provider] - 08/06/17 10:00 am (please follow up with Darlene Santana at [place])
[2017-08-02] MEDS: Dextrose Gel 15 GM/37.5 ML TUBE PO PRN (21:51)
[2017-08-03] MEDS: *HR* Heparin 5,000 UNIT/ML VIAL SQ SCH ×2 (05:48→18:36)
[2017-08-03] MEDS: Insulin NPH/REG 70/30 100 UNIT/ML (x5UNIT) SQ SCH ×2 (10:49→18:36)
[2017-08-03] MEDS: Gabapentin 300 MG CAPSULE PO SCH ×3 (10:50→20:53)
[2017-08-03] MEDS: GuaiFENesin Liq 200 MG/10 ML UDC PO SCH ×2 (10:51→20:54)
[2017-08-03] MEDS: FLUoxetine 20 MG CAPSULE PO SCH (10:51)
[2017-08-03] MEDS: Insulin LISPRO 300 UNITS/3 ML VIAL SQ SCH ×4 (10:52→20:41)
[2017-08-03] MEDS: Furosemide 40 MG TABLET PO SCH (10:52)
[2017-08-03] MEDS: Piperacillin/Tazobactam 3.375 GM/200 ML BAG IVPB SCH ×2 (13:09→21:00)
--- NOTE | 2017-08-03 17:06 | Internal Med Progress Note ---
Date of Encounter: 08/03/17 Time of Encounter: 17:04 - Assessment and plan (1) UTI (urinary tract infection) Current Visit: No Status: Acute Assessment and plan: Patient was evaluated in the emergency room at [facility]. She was transferred here for altered mental status. Patient is known to have altered mental status when she has underlying urinary tract infection. This is a fourth episode of urinary tract infection. Previous UTI showed Escherichia coli pansensitive strain. This episode urine culture positive for gram-negative bradford. Patient is presently on Zosyn. In view of the recurrent urinary tract infection and underlying malignancy I called urology for further evaluation 08/02/2017 As I mentioned this is a delayed entry. I have examined this patient on 08/01/2017 and please treat this note as a 2017's note. Noted that patient has a multi drug resistant organism in the urine. I discussed case with the infectious disease attending Dr. Bauer. We have sent repeat culture. Total number of urinary tract infection episodes: 4 Out of which one episode shows positive urine culture: Escherichia coli: Pansensitive. Patient is immunocompromised host in terms of underlying diabetes/lung cancer. Patient has responded excellent clinically to present treatment which is Zosyn. There is a possibility that patient might have some atelectasis/pneumonia/lung cancer itself in the left lower lobe. Case discussed with infectious disease and recommendations as follows. We will continue the present treatment over the weekend. If patient deteriorates then to add a fosfomycin. If patient continues to improve then we will continue the same treatment and infectious disease will see patient on Friday. 08/02/2017 Patient seen and examined today. Patient is more alert and oriented. Patient does not have any urinary symptoms. Patient has cough/shortness of breath/chest pain or hemoptysis Urine culture which was sent on 08/01/2017: No growth and this is the final report. Plan: Will continue present Zosyn for now. I will not disturb infectious disease on a weekend. But I will continue this intravenous Zosyn for her next 48 hours and will update ID on Friday. 08/03/2017 Patient clinically improving. No new changes in terms of antibiotics. Today is day 5 of Zosyn. Plan: Will continue same treatment for now. Tomorrow we will ask infectious disease for a total number of days/duration of antibiotics. Plan of care informed of the patient's . Qualifiers: Urinary tract infection type: acute cystitis Hematuria presence: without hematuria Qualified Code(s): N30.00 - Acute cystitis without hematuria (2) Altered mental status Current Visit: Yes Status: Acute Assessment and plan: Likely secondary to urinary tract infection/urosepsis Patient's altered mental status has improved dramatically. Qualifiers: Altered mental status type: disorientation Qualified Code(s): R41.0 - Disorientation, unspecified (3) Lung cancer Current Visit: No Status: Acute Assessment and plan: Follow with oncology at [facility]. Qualifiers: Laterality: unspecified laterality Lung location: unspecified part of lung Qualified Code(s): C34.90 - Malignant neoplasm of unspecified part of unspecified bronchus or lung (4) Diabetes type 2, uncontrolled Current Visit: No Status: Chronic Assessment and plan: Uncontrolled diabetes mellitus Presently on subcutaneous insulin. Qualifiers: Diabetes mellitus complication status: with unspecified complications Diabetes mellitus assisted insulin use: unspecified assisted insulin use status Qualified Code(s): E11.8 - Type 2 diabetes mellitus with unspecified complications; E11.65 - Type 2 diabetes mellitus with hyperglycemia; E11.65 - Type 2 diabetes mellitus with hyperglycemia; E11.65 - Type 2 diabetes mellitus with hyperglycemia; E11.65 - Type 2 diabetes mellitus with hyperglycemia - Subjective Interval history: Patient seen and examined. Chart reviewed. patient is comfortably lying in the bed. Patient at bedside. 08/02/2017 This is a delayed entry. I have examined this patient on 08/01/2017. I was unable to write a note on the same day but I am completing the note in 24 hours. Patient is alert and more oriented as compared to yesterday. 08/02/2017 I have examined this patient today. Patient's was at bedside. I have explained patient's regarding MDRO Klebsiella pneumonia. Patient is more alert and oriented then past 2 days. 08/03/2017 I examined this patient today when patient's family member was at bedside. Patient is comfortably lying down in the bed. Patient denies any chest pain, nausea, abdominal pain, dysuria, increased frequency of urination and dizziness. - Constitutional Vitals: Temp Pulse Resp BP Pulse Ox 97.8 F 85 17 117/67 95 08/03/17 15:41 08/03/17 15:41 08/03/17 15:41 08/03/17 15:41 08/03/17 15:41 General appearance: Present: A&O X 2, no acute distress, answers questions appropriately - Head Head exam: Present: atraumatic, normocephalic - Eye Eye exam: Present: PERRL, conjuntiva pink, sclera anicteric Pupils: Present: PERRL - Neck Neck exam general surgery: Present: supple, trachea midline. Absent: lymphadenopathy - Respiratory Respiratory exam: Present: CTAB. Absent: accessory muscle use, rales, rhonchi, wheezes - Cardiovascular Cardiovascular exam: Present: RRR, +S1, +S2. Absent: diastolic murmur, gallop, rubs, systolic murmur - GI/Abdominal GI/Abdominal exam: Present: normal bowel sounds, soft, no peritoneal signs. Absent: distended, tenderness - Extremities Exam Extremities exam: Present: warm, radial pulses palpable and symmetrical. Absent : calf tenderness, cyanotic, pedal edema - Neurological Exam Neurological exam: Present: CN II-XII intact, oriented X3, no focal deficits. Absent: pronater drift, facial droop, speech deficit - Skin Skin exam: Present: dry, intact Internal Medicine: Result - Labs CBC & Chem 7: 08/01/17 03:40 08/01/17 03:40 Consult Discharge Plan - Plan Referrals: Emmanuelle Ellison, SPEEDER TENDER [Primary Care Provider] - 08/06/17 10:00 am (please follow up with Darlene Santana at [place])
[2017-08-04 03:39] LABS: Basophils # 0.1 K/mcL (0.0-0.2); Basophils % 0.5 %; Eosinophils # 0.4 K/mcL (0.0-0.6); Eosinophils % 4.1 %; Hematocrit 35.6 % (35.3-44.9); Immature Granulocytes % 1.2 % (0-4); Lymphocytes # 2.3 K/mcL (0.6-4.6); Lymphocytes % 23.1 %; Mean Corpuscular HGB Conc 30.9 g/dL (31.6-35.5); Mean Corpuscular Hemoglobin 26.8 pg (28.0-33.3); Mean Corpuscular Volume 86.6 fL (83.0-100.0); Mean Platelet Volume 9.5 fL (9.4-12.4); Monocytes # 0.9 K/mcL (0.0-1.3); Monocytes % 9.3 %; Neutrophils # 6.2 K/mcL (1.6-8.9); Platelet Count 337 K/mcL (140-400); Red Blood Count 4.11 M/mcL (3.82-4.97); Red Cell Distribution Width 16.7 % (11.5-14.5); Segmented Neutrophils % 61.8 %
[2017-08-04 04:00] LABS: Albumin 3.2 g/dL (3.5-5.7); Albumin/Globulin Ratio 1.2 (1.1-2.2); Bilirubin,Total 0.3 mg/dL (0.3-1.0); Calcium 8.2 mg/dL (8.6-10.3); Globulin 2.7 g/dL (2.4-3.5); Potassium 3.7 mEq/L (3.5-5.1); Total Protein 5.9 g/dL (6.4-8.9)
[2017-08-04] MEDS: Piperacillin/Tazobactam 3.375 GM/200 ML BAG IVPB SCH ×3 (05:20→23:17)
[2017-08-04] MEDS: *HR* Heparin 5,000 UNIT/ML VIAL SQ SCH ×2 (05:25→18:33)
[2017-08-04] MEDS: FLUoxetine 20 MG CAPSULE PO SCH (11:10)
[2017-08-04] MEDS: Insulin LISPRO 300 UNITS/3 ML VIAL SQ SCH ×4 (11:10→21:22)
[2017-08-04] MEDS: Insulin NPH/REG 70/30 100 UNIT/ML (x5UNIT) SQ SCH ×2 (11:10→18:32)
[2017-08-04] MEDS: Gabapentin 300 MG CAPSULE PO SCH ×3 (11:11→21:21)
[2017-08-04] MEDS: Furosemide 40 MG TABLET PO SCH (11:11)
[2017-08-04] MEDS: GuaiFENesin Liq 200 MG/10 ML UDC PO SCH ×2 (11:12→21:20)
--- NOTE | 2017-08-04 15:40 | Discharge Summary ---
Date of Encounter: 08/04/17 Time of Encounter: 15:38 - Discharge Diagnosis (1) UTI (urinary tract infection) Priority: Primary Status: Acute Qualifiers: Urinary tract infection type: acute cystitis Hematuria presence: without hematuria Qualified Code(s): N30.00 - Acute cystitis without hematuria (2) Altered mental status Priority: Primary Status: Acute Qualifiers: Altered mental status type: disorientation Qualified Code(s): R41.0 - Disorientation, unspecified (3) Lung cancer Priority: Secondary Status: Acute Qualifiers: Laterality: unspecified laterality Lung location: unspecified part of lung Qualified Code(s): C34.90 - Malignant neoplasm of unspecified part of unspecified bronchus or lung (4) Diabetes type 2, uncontrolled Priority: Secondary Status: Chronic Qualifiers: Diabetes mellitus complication status: with unspecified complications Diabetes mellitus terminal manager insulin use: unspecified terminal manager insulin use status Qualified Code(s): E11.8 - Type 2 diabetes mellitus with unspecified complications; E11.65 - Type 2 diabetes mellitus with hyperglycemia; E11.65 - Type 2 diabetes mellitus with hyperglycemia; E11.65 - Type 2 diabetes mellitus with hyperglycemia; E11.65 - Type 2 diabetes mellitus with hyperglycemia - Discharge Medications Prescriptions: Amoxicillin/Clavulanate [Augmentin] 875 mg PO BIDWM #10 tablet Home Medications: Benztropine [Cogentin] 1 mg PO BID 11/25/15 [History] Carvedilol [Coreg] 12.5 mg PO BID 11/25/15 [History] Esomeprazole Magnesium [Nexium] 40 mg PO HS 11/25/15 [History] FLUoxetine HCl [Prozac] 80 mg PO DAILY 11/25/15 [History] Gabapentin [Neurontin] 600 mg PO TID 11/25/15 [History] Haloperidol [Haldol] 5 mg PO QAM 11/25/15 [History] Metformin HCl [Glucophage] 1,000 mg PO BID 11/25/15 [History] Montelukast [Singulair] 10 mg PO DAILY 11/25/15 [History] Oxycodone HCl 15 mg PO Q8H PRN 11/25/15 [History] Potassium Chloride [Klor-Con] 20 meq PO DAILY 11/25/15 [History] Prochlorperazine Maleate [Compazine] 10 mg PO Q6HR PRN 11/25/15 [History] Theophylline Anhydrous [Theophylline] 300 mg PO BID 11/25/15 [History] Tizanidine HCl [Zanaflex] 4 mg PO TID PRN 11/25/15 [History] Insulin Aspart Prot/Insuln Asp [Novolog Mix 70-30 Flexpen Syrn] 30 unit SQ QPM 05/07/17 [History] Insulin Aspart Prot/Insuln Asp [Novolog Mix 70-30 Flexpen Syrn] 50 unit SQ QAM 05/07/17 [History] Insulin Regular, Human [Novolin R] 10 unit SQ TID 05/07/17 [History] LORazepam [Ativan] 0.5 mg PO BID PRN 05/07/17 [History] Calcium Carbonate [Calcium] 600 mg PO QDPC 05/08/17 [History] Haloperidol [Haldol] 2.5 mg PO HS 05/08/17 [History] Megestrol Acetate [Megace] 40 mg PO TID PRN 05/08/17 [History] Multivitamin/Iron/Folic Acid [Centrum Complete Multivit Tab] 1 each PO QDPC 07/13 [History] Albuterol Neb [AccuNeb] 0.63 mg IH Q6H PRN 07/30/17 [History] Albuterol Sulfate [Proair Hfa] 2 puff IH Q4H PRN 07/30/17 [History] Furosemide [Lasix] 40 mg PO DAILY 07/30/17 [History] Nitrofurantoin (BID) [Macrobid] 100 mg PO DAILY 07/30/17 [History] guaiFENesin [Guaifenesin] 400 mg PO BID 07/30/17 [History] Amoxicillin/Clavulanate [Augmentin] 875 mg PO BIDWM #10 tablet 08/04/17 [Rx] Allergies/Adverse Reactions: 3 Allergy/AdvReac Type Severity Reaction Status Date / Time iodine Allergy Nausea Verified 01/02/16 13:45 Sulfa (Sulfonamide Allergy Nausea Verified 01/02/16 13:45 Antibiotics) Date of admission: 07/30/17 02:51 Primary care physician: Emmanuelle Ellison CNP Consults: 07/30/17 00:32 Consult to Cytotechnologist/Cytology Supervisor [CONS] Routine Reason for SW Consult: D/C NEEDS-HAS HOME O2 AND CPAP 07/31/17 16:10 Consult to Urology [CONS] Routine Consulting Provider: Adilsony Eri Reason for Consult: Recurrent urinary tract infection in a immunocompromised host Call Completed: Yes Discharging clinician: Jose Roberto Barrera - Patient Status Disposition: Home, Self-Care Condition: Good Functional capacity at discharge: independent ambulation Overall status at discharge: patient is progressing back to baseline - Discharge Instructions Follow Up With: Emmanuelle Ellison CNP [Primary Care Provider] - 08/06/17 10:00 am (please follow up with Darlene Santana at [email or web address]) Fransisco Morgan MD [Partnered Physician] - - Diet and Activity Activity: increase activity as tolerated Diet: diabetic diet, low fat, low cholesterol Interval History: Ms. Beauchamp is a 52 year old female with history of recurrent UTI, diabetes, CKD , and COPD presented to [place] emergency room for altered mental status and near syncope. Patient has history of recurrent UTI. Patient was treated with Rocephin and Cipro as outpatient but not effective. Patient has altered mental status, generalized weakness, and near syncope. Patient has similar symptoms when she has UTI several months ago. Patient was transferred to our hospital for further management. Hospital course: Patient was hospitalized. Patient was started on Zosyn. Patient responded very to the IV antibiotics. Urology was called in view of multiple urinary tract infection in an immunocompromised host. Urology recommended outpatient follow-up. Urine culture from [place] emergency ER shows [id number] organism: Klebsiella pneumonia. But patient responded clinically to Zosyn. I resend the culture from this hospital and the culture was negative for any bacterial growth. Case briefly discussed with infectious disease and recommendation from infectious diseases to send patient home on Augmentin. Plan: Patient will go home with Augmentin. Follow-up with primary care. I spoke with Dr. Morgan is a urologist and he will see patient as outpatient. All questions answered. - Time Spent with Patient Total time spent providing and/or coordinating discharge services: - Constitutional Vitals: Temp Pulse Resp BP Pulse Ox 98.6 F 82 18 120/73 93 08/04/17 10:56 08/04/17 10:56 08/04/17 10:56 08/04/17 10:56 08/04/17 10:56 General appearance: Present: A&O X 2, no acute distress, answers questions appropriately - Head Head exam: Present: atraumatic, normocephalic - Eye Eye exam: Present: PERRL, conjuntiva pink, sclera anicteric Pupils: Present: PERRL - Neck Neck exam general surgery: Present: supple, trachea midline. Absent: lymphadenopathy - Respiratory Respiratory exam: Present: CTAB. Absent: accessory muscle use, rales, rhonchi, wheezes - Cardiovascular Cardiovascular exam: Present: RRR, +S1, +S2. Absent: diastolic murmur, gallop, rubs, systolic murmur - GI/Abdominal GI/Abdominal exam: Present: normal bowel sounds, soft, no peritoneal signs. Absent: distended, tenderness - Extremities Exam Extremities exam: Present: warm, radial pulses palpable and symmetrical. Absent : calf tenderness, cyanotic, pedal edema - Neurological Exam Neurological exam: Present: CN II-XII intact, oriented X3, no focal deficits. Absent: pronater drift, facial droop, speech deficit - Skin Skin exam: Present: dry, intact
[2017-08-05] MEDS: *HR* Heparin 5,000 UNIT/ML VIAL SQ SCH (06:29)
[2017-08-05 08:19] VITALS: BP 113/65
--- NOTE | 2017-08-05 09:10 | Internal Med Progress Note ---
Date of Encounter: 08/05/17 Time of Encounter: 09:08 - Assessment and plan (1) UTI (urinary tract infection) Status: Acute Assessment and plan: Patient has been started on Zosyn with appropriate clinical response as documented by previous hospitalist. Received IV Zosyn in the hospital. We will give a dose of by mouth Augmentin prior to discharge. Arrangements for discharge have been completed yesterday, however patient did not have a ride so discharge has been held. Stable for discharge today. Qualifiers: Urinary tract infection type: acute cystitis Hematuria presence: without hematuria Qualified Code(s): N30.00 - Acute cystitis without hematuria (2) Diabetes type 2, uncontrolled Status: Chronic Assessment and plan: Blood sugars better controlled. Continue current insulin regimen. Diabetic diet. Qualifiers: Diabetes mellitus complication status: with unspecified complications Diabetes mellitus ad terminal makeup operator insulin use: unspecified longterm insulin use status Qualified Code(s): E11.8 - Type 2 diabetes mellitus with unspecified complications; E11.65 - Type 2 diabetes mellitus with hyperglycemia; E11.65 - Type 2 diabetes mellitus with hyperglycemia; E11.65 - Type 2 diabetes mellitus with hyperglycemia; E11.65 - Type 2 diabetes mellitus with hyperglycemia (3) Lung cancer Status: Chronic Qualifiers: Laterality: unspecified laterality Lung location: unspecified part of lung Qualified Code(s): C34.90 - Malignant neoplasm of unspecified part of unspecified bronchus or lung (4) CKD (chronic kidney disease) stage 3, GFR 30-59 ml/min Status: Chronic (5) COPD (chronic obstructive pulmonary disease) Status: Chronic Qualifiers: COPD type: emphysema Emphysema type: unspecified Qualified Code(s): J43.9 - Emphysema, unspecified - Subjective Interval history: Reports feeling well; no chest pain, abdominal pain, shortness of breath, nausea or vomiting; has been discharged yesterday but did not have a ride home; she reports her can pick her up today; - Constitutional Vitals: Temp Pulse Resp BP Pulse Ox 98.2 F 74 16 113/65 95 08/05/17 08:18 08/05/17 08:18 08/05/17 08:18 08/05/17 08:18 08/05/17 08:18 General appearance: Present: A&O X 3, answers questions appropriately - Respiratory Respiratory exam: Present: CTAB, wheezes (B/L anterior mild wheezing). Absent: accessory muscle use, rales, rhonchi - Cardiovascular Cardiovascular exam: Present: RRR, +S1, +S2. Absent: diastolic murmur, gallop, rubs, systolic murmur Internal Medicine: Result - Labs CBC & Chem 7: 08/04/17 03:20 08/04/17 03:20 Consult Discharge Plan - Plan Instructions: Amoxicillin (By mouth), Urinary Tract Infection in Women (GEN), Chronic Obstructive Pulmonary Disease (GEN) Referrals: Emmanuelle Ellison CNP [Primary Care Provider] - 08/06/17 10:00 am (please follow up with Darlene Santana at [facility]) Fransisco Morgan MD [Partnered Physician] - Prescriptions: Amoxicillin/Clavulanate [Augmentin] 875 mg PO BIDWM #10 tablet
[2017-08-05] MEDS: GuaiFENesin Liq 200 MG/10 ML UDC PO SCH (10:09)
[2017-08-05] MEDS: Insulin NPH/REG 70/30 100 UNIT/ML (x5UNIT) SQ SCH (10:09)
[2017-08-05] MEDS: Insulin LISPRO 300 UNITS/3 ML VIAL SQ SCH (10:10)
[2017-08-05] MEDS: Furosemide 40 MG TABLET PO SCH (10:10)
[2017-08-05] MEDS: Gabapentin 300 MG CAPSULE PO SCH (10:10)
[2017-08-05] MEDS: FLUoxetine 20 MG CAPSULE PO SCH (10:10)
== END 2017-08-05 10:37 | disposition home or self-care (01) | DRG 690 ==
LOC: 2ANU → SUATTDRO 07-30 02:51
PROVIDERS: ADMIT Internal Medicine; ATTEND Internal Medicine

== ENCOUNTER 2019-09-19 00:54 | Inpatient (IN) ==
[2019-09-19] MEDS ORDERED: *HR* Dextrose 50 % in Water (Syg) 50 ML SYRINGE IVP ONE (03:40)
[2019-09-19] MEDS ORDERED: Naloxone 0.4 MG/ML INJ IVP PRN (04:10)
[2019-09-19] MEDS: D5% in 0.9% NACL 1,000 ML IVC SCH ×2 (04:15→21:02)
[2019-09-19 04:55] LABS: ABG Base Excess 0 mEq/L (-2 to 3); ABG HCO3 27 mEq/L (21-27); ABG Oxygen Saturation 91 % (95-98); ABG PCO2 51 mmHg (35-45); ABG PH 7.33 pH Units (7.32-7.45); ABG PO2 67 mmHg (85-104); ABG TCO2 28 mEq/L (20-26); Blood Gas Modality AF; Blood Gas VT 450 cc
[2019-09-19] MEDS: FentaNYL (PF) 1,000 MCG in 0.9 % Sodium Chloride 80 ML IVC SCH ×2 (05:28→22:19)
[2019-09-19 05:41] LABS: Basophils # 0.1 K/mcL (0.0-0.2); Basophils % 0.7 %; Eosinophils % 0.1 %; Hematocrit 37.5 % (35.3-44.9); Hemoglobin 11.2 g/dL (11.5-15.4); Immature Granulocytes % 2.4 % (0-4); Lymphocytes # 0.9 K/mcL (0.6-4.6); Lymphocytes % 8.8 %; Mean Corpuscular HGB Conc 29.9 g/dL (31.6-35.5); Mean Corpuscular Hemoglobin 28.8 pg (28.0-33.3); Mean Corpuscular Volume 96.4 fL (83.0-100.0); Mean Platelet Volume 9.6 fL (9.4-12.4); Monocytes # 0.5 K/mcL (0.0-1.3); Monocytes % 5.2 %; Neutrophils # 8.7 K/mcL (1.6-8.9); Platelet Count 244 K/mcL (140-400); Red Blood Count 3.89 M/mcL (3.82-4.97); Segmented Neutrophils % 82.8 %; White Blood Count 10.4 K/mcL (4.3-11.1)
[2019-09-19] MEDS ORDERED: Cefepime HCl 2,000 MG in 0.9 % Sodium Chloride Mini Bag 100 ML IVPB SCH (06:00)
[2019-09-19] MEDS ORDERED: Vancomycin (wt based) 1,000 MG VIAL IVPB SCH (06:00)
[2019-09-19 06:19] LABS: Alanine Aminotransferase 9 Units/L (7-52); Albumin 1.9 g/dL (3.5-5.7); Albumin/Globulin Ratio 1.2 (1.1-2.2); Alkaline Phosphatase 58 Units/L (34-104); Aspartate Amino Transferase 11 Units/L (13-39); BUN/Creatinine Ratio 10 (6-26); Bilirubin,Total 0.3 mg/dL (0.3-1.0); Blood Urea Nitrogen 8 mg/dL (6-20); Calcium 5.3 mg/dL (8.6-10.3); Carbon Dioxide 18 mEq/L (23-29); Chloride 118 mEq/L (98-107); Globulin 1.6 g/dL (2.4-3.5); Glucose > 2400 mg/dL (70-105); Magnesium 1.1 mg/dL (1.6-2.6); Phosphorous 2.9 mg/dL (2.7-4.5); Potassium 2.9 mEq/L (3.5-5.1); Sodium 141 mEq/L (136-145); Total Protein 3.5 g/dL (6.4-8.9); eGFR For African Americans > 60 (> 60); eGFR For Non-African Americans > 60 (> 60)
[2019-09-19] MEDS ORDERED: Potassium Chloride Elixir 20 MEQ/15 ML UDC GTUBE ONE (06:19)
[2019-09-19] MEDS: Calcium Gluconate 1gm/50mL 1 GM/50 ML BAG IVPB SCH ×5 (06:45→10:39)
[2019-09-19 07:11] LABS: BUN/Creatinine Ratio 14 (6-26); Blood Urea Nitrogen 12 mg/dL (6-20); Carbon Dioxide 27 mEq/L (23-29); Chloride 106 mEq/L (98-107); Glucose 156 mg/dL (70-105); Osmolality,Calculated 291 (280-300); Potassium 3.7 mEq/L (3.5-5.1); Sodium 139 mEq/L (136-145); eGFR For African Americans > 60 (> 60); eGFR For Non-African Americans > 60 (> 60)
[2019-09-19] MEDS ORDERED: Potassium Phosphate 44 MEQ in 0.9 % Sodium Chloride 250 ML IVPB PRN (07:22)
[2019-09-19] MEDS ORDERED: Aminoglycoside Consult 1 EACH MC ONE (07:51)
[2019-09-19] MEDS ORDERED: MetroNIDAZOLE 500 MG/100 ML 500 MG/100 ML BAG IVPB SCH (08:00)
[2019-09-19] MEDS: Piperacillin/Tazobactam 3.375 GM in 0.9 % Sodium Chloride Mini Bag 100 ML IVPB SCH ×2 (09:22→18:37)
[2019-09-19] MEDS: Chlorhexidine Rinse 15 ML MOUTHWASH MM SCH ×2 (09:22→21:02)
[2019-09-19] MEDS: Artificial Tears SOLN 15 ML BOTTLE BOTH EYES SCH ×5 (09:23→23:34)
[2019-09-19] MEDS: Ipratropium/Albuterol Neb 3 ML IH SCH ×4 (11:43→23:27)
[2019-09-19] MEDS: Budesonide/Formoterol 160/4.5 1 PUFF INH IH SCH ×2 (11:44→19:37)
[2019-09-20] MEDS: Piperacillin/Tazobactam 3.375 GM in 0.9 % Sodium Chloride Mini Bag 100 ML IVPB SCH ×3 (01:09→18:49)
[2019-09-20] MEDS: Artificial Tears SOLN 15 ML BOTTLE BOTH EYES SCH ×5 (03:07→20:00)
[2019-09-20 03:26] LABS: Basophils # 0.1 K/mcL (0.0-0.2); Basophils % 0.6 %; Eosinophils # 0.1 K/mcL (0.0-0.6); Eosinophils % 0.9 %; Hematocrit 37.8 % (35.3-44.9); Hemoglobin 11.6 g/dL (11.5-15.4); Immature Granulocytes % 1.5 % (0-4); Lymphocytes # 1.8 K/mcL (0.6-4.6); Lymphocytes % 15.2 %; Mean Corpuscular HGB Conc 30.7 g/dL (31.6-35.5); Mean Corpuscular Hemoglobin 29.4 pg (28.0-33.3); Mean Corpuscular Volume 95.7 fL (83.0-100.0); Mean Platelet Volume 9.1 fL (9.4-12.4); Monocytes # 0.9 K/mcL (0.0-1.3); Monocytes % 8.2 %; Neutrophils # 8.5 K/mcL (1.6-8.9); Platelet Count 240 K/mcL (140-400); Red Blood Count 3.95 M/mcL (3.82-4.97); Red Cell Distribution Width 15.2 % (11.5-14.5); Segmented Neutrophils % 73.6 %; White Blood Count 11.5 K/mcL (4.3-11.1)
[2019-09-20] MEDS: Ipratropium/Albuterol Neb 3 ML IH SCH ×6 (03:27→23:06)
[2019-09-20 03:41] LABS: BUN/Creatinine Ratio 11 (6-26); Blood Urea Nitrogen 11 mg/dL (6-20); Calcium 7.8 mg/dL (8.6-10.3); Carbon Dioxide 26 mEq/L (23-29); Chloride 109 mEq/L (98-107); Glucose 224 mg/dL (70-105); Osmolality,Calculated 296 (280-300); Potassium 3.9 mEq/L (3.5-5.1); Sodium 140 mEq/L (136-145); eGFR For African Americans > 60 (> 60); eGFR For Non-African Americans 60 (> 60)
[2019-09-20 04:26] LABS: ABG Base Excess 1 mEq/L (-2 to 3); ABG HCO3 28 mEq/L (21-27); ABG Oxygen Saturation 93 % (95-98); ABG PCO2 56 mmHg (35-45); ABG PH 7.31 pH Units (7.32-7.45); ABG PO2 74 mmHg (85-104); ABG TCO2 30 mEq/L (20-26); Blood Gas Modality AF; Blood Gas VT 450 cc
[2019-09-20 04:26] LABS: Magnesium 1.8 mg/dL (1.6-2.6); Phosphorous 3.4 mg/dL (2.7-4.5)
[2019-09-20 04:43] LABS: VBG Ionized Calcium 1.16 mmol/L (1.15-1.35)
[2019-09-20 04:43] LABS: Troponin I 0.16 ng/mL (< 0.04)
[2019-09-20] MEDS: Potassium Chloride 40 MEQ/200 ML BAG IVPB PRN ×2 (05:26→06:26)
[2019-09-20] MEDS: Budesonide/Formoterol 160/4.5 1 PUFF INH IH SCH ×2 (07:26→19:07)
[2019-09-20] MEDS: D5% in 0.9% NACL 1,000 ML IVC SCH ×2 (07:53→20:00)
[2019-09-20] MEDS: Chlorhexidine Rinse 15 ML MOUTHWASH MM SCH ×2 (07:53→20:00)
[2019-09-20] MEDS ORDERED: cefTRIAXone 2,000 MG in Water for inj. (sterile) 20 ML IVP SCH (09:00)
[2019-09-20] MEDS ORDERED: Dextrose Gel 15 GM/37.5 ML TUBE PO PRN ×2 (11:44)
[2019-09-20] MEDS ORDERED: D5% in Water 1,000 ML IVC PRN (11:44)
[2019-09-20] MEDS ORDERED: *HR* Dextrose 50 % in Water (Syg) 50 ML SYRINGE IVP PRN (11:44)
[2019-09-20] MEDS: FentaNYL (PF) 1,000 MCG in 0.9 % Sodium Chloride 80 ML IVC SCH (12:17)
[2019-09-20] MEDS: Insulin LISPRO 300 UNITS/3 ML VIAL SQ SCH ×4 (12:51→18:48)
[2019-09-20] MEDS: Pantoprazole 40 MG VIAL IVP SCH (12:58)
[2019-09-20] MEDS ORDERED: levETIRAcetam 1,000 MG in 0.9 % Sodium Chloride 100 ML IVPB ONE (15:42)
[2019-09-20] MEDS ORDERED: Acyclovir 600 MG in D5% in Water 100 ML IVPB SCH (16:00)
[2019-09-20] MEDS: *HR* Heparin 5,000 UNIT/ML VIAL SQ SCH (18:47)
[2019-09-20] MEDS: Acyclovir 600 MG in D5% in Water 250 ML IVPB SCH (18:49)
[2019-09-21] MEDS: Acyclovir 600 MG in D5% in Water 250 ML IVPB SCH ×4 (00:40→23:11)
[2019-09-21] MEDS: Artificial Tears SOLN 15 ML BOTTLE BOTH EYES SCH ×7 (00:42→23:16)
[2019-09-21] MEDS: Insulin LISPRO 300 UNITS/3 ML VIAL SQ SCH ×6 (00:43→23:14)
[2019-09-21] MEDS: Piperacillin/Tazobactam 3.375 GM in 0.9 % Sodium Chloride Mini Bag 100 ML IVPB SCH ×3 (03:10→18:37)
[2019-09-21] MEDS: Ipratropium/Albuterol Neb 3 ML IH SCH ×6 (03:20→23:17)
[2019-09-21] MEDS: FentaNYL (PF) 1,000 MCG in 0.9 % Sodium Chloride 80 ML IVC SCH (04:06)
[2019-09-21 04:11] LABS: ABG Base Excess 3 mEq/L (-2 to 3); ABG HCO3 30 mEq/L (21-27); ABG Oxygen Saturation 95 % (95-98); ABG PCO2 55 mmHg (35-45); ABG PH 7.34 pH Units (7.32-7.45); ABG PO2 83 mmHg (85-104); ABG TCO2 31 mEq/L (20-26); Blood Gas Modality ASSIST CONTROL; Blood Gas VT 450 cc
[2019-09-21 05:14] LABS: Basophils # 0.1 K/mcL (0.0-0.2); Basophils % 0.8 %; Eosinophils # 0.1 K/mcL (0.0-0.6); Eosinophils % 1.4 %; Hematocrit 35.5 % (35.3-44.9); Immature Granulocytes % 0.7 % (0-4); Lymphocytes # 1.8 K/mcL (0.6-4.6); Mean Corpuscular Hemoglobin 29.3 pg (28.0-33.3); Mean Corpuscular Volume 94.7 fL (83.0-100.0); Mean Platelet Volume 9.9 fL (9.4-12.4); Monocytes # 0.9 K/mcL (0.0-1.3); Monocytes % 8.7 %; Neutrophils # 7.2 K/mcL (1.6-8.9); Platelet Count 249 K/mcL (140-400); Red Blood Count 3.75 M/mcL (3.82-4.97); Red Cell Distribution Width 15.3 % (11.5-14.5); Segmented Neutrophils % 70.4 %; White Blood Count 10.2 K/mcL (4.3-11.1)
[2019-09-21] MEDS: *HR* Heparin 5,000 UNIT/ML VIAL SQ SCH ×2 (06:42→18:36)
[2019-09-21] MEDS: Budesonide/Formoterol 160/4.5 1 PUFF INH IH SCH ×2 (07:19→19:48)
[2019-09-21 08:38] LABS: BUN/Creatinine Ratio 12 (6-26); Blood Urea Nitrogen 10 mg/dL (6-20); Calcium 8.1 mg/dL (8.6-10.3); Carbon Dioxide 28 mEq/L (23-29); Chloride 109 mEq/L (98-107); Glucose 146 mg/dL (70-105); Magnesium 1.8 mg/dL (1.6-2.6); Osmolality,Calculated 292 (280-300); Phosphorous 2.7 mg/dL (2.7-4.5); Potassium 3.8 mEq/L (3.5-5.1); Sodium 140 mEq/L (136-145); eGFR For African Americans > 60 (> 60); eGFR For Non-African Americans > 60 (> 60)
[2019-09-21] MEDS: Chlorhexidine Rinse 15 ML MOUTHWASH MM SCH ×2 (10:03→20:30)
[2019-09-21] MEDS: Pantoprazole 40 MG VIAL IVP SCH (10:03)
[2019-09-21] MEDS ORDERED: Furosemide 20 MG/2 ML VIAL IVP ONE (11:28)
[2019-09-21] MEDS: D5% in 0.9% NACL 1,000 ML IVC SCH ×2 (16:34→20:26)
[2019-09-22] MEDS: Piperacillin/Tazobactam 3.375 GM in 0.9 % Sodium Chloride Mini Bag 100 ML IVPB SCH ×3 (03:02→18:40)
[2019-09-22] MEDS: Artificial Tears SOLN 15 ML BOTTLE BOTH EYES SCH ×5 (03:02→23:38)
[2019-09-22 03:10] LABS: Basophils # 0.1 K/mcL (0.0-0.2); Basophils % 0.5 %; Eosinophils # 0.2 K/mcL (0.0-0.6); Eosinophils % 1.5 %; Hematocrit 34.3 % (35.3-44.9); Hemoglobin 10.8 g/dL (11.5-15.4); Immature Granulocytes % 0.6 % (0-4); Lymphocytes # 1.5 K/mcL (0.6-4.6); Lymphocytes % 13.8 %; Mean Corpuscular HGB Conc 31.5 g/dL (31.6-35.5); Mean Corpuscular Hemoglobin 29.2 pg (28.0-33.3); Mean Corpuscular Volume 92.7 fL (83.0-100.0); Mean Platelet Volume 9.6 fL (9.4-12.4); Monocytes # 0.9 K/mcL (0.0-1.3); Monocytes % 7.9 %; Neutrophils # 8.4 K/mcL (1.6-8.9); Platelet Count 245 K/mcL (140-400); Red Cell Distribution Width 15.1 % (11.5-14.5); Segmented Neutrophils % 75.7 %; White Blood Count 11.1 K/mcL (4.3-11.1)
[2019-09-22] MEDS: Ipratropium/Albuterol Neb 3 ML IH SCH ×6 (03:12→23:39)
[2019-09-22 03:29] LABS: BUN/Creatinine Ratio 12 (6-26); Blood Urea Nitrogen 9 mg/dL (6-20); Carbon Dioxide 28 mEq/L (23-29); Chloride 106 mEq/L (98-107); Glucose 181 mg/dL (70-105); Magnesium 1.6 mg/dL (1.6-2.6); Osmolality,Calculated 291 (280-300); Potassium 3.8 mEq/L (3.5-5.1); Sodium 139 mEq/L (136-145); eGFR For African Americans > 60 (> 60); eGFR For Non-African Americans > 60 (> 60)
[2019-09-22 04:25] LABS: ABG Base Excess 4 mEq/L (-2 to 3); ABG HCO3 30 mEq/L (21-27); ABG Oxygen Saturation 92 % (95-98); ABG PCO2 52 mmHg (35-45); ABG PH 7.38 pH Units (7.32-7.45); ABG PO2 67 mmHg (85-104); ABG TCO2 32 mEq/L (20-26); Blood Gas Modality VC; Blood Gas VT 450 cc
[2019-09-22] MEDS: Potassium Chloride 40 MEQ/200 ML BAG IVPB PRN ×2 (04:49→23:28)
[2019-09-22] MEDS: *HR* Heparin 5,000 UNIT/ML VIAL SQ SCH ×2 (04:50→18:38)
[2019-09-22] MEDS: Insulin LISPRO 300 UNITS/3 ML VIAL SQ SCH ×4 (05:03→23:35)
[2019-09-22] MEDS: Budesonide/Formoterol 160/4.5 1 PUFF INH IH SCH ×2 (07:10→20:39)
[2019-09-22] MEDS: Chlorhexidine Rinse 15 ML MOUTHWASH MM SCH ×2 (08:41→20:16)
[2019-09-22] MEDS: Pantoprazole 40 MG VIAL IVP SCH (08:42)
[2019-09-22] MEDS: Acyclovir 600 MG in D5% in Water 250 ML IVPB SCH ×2 (08:43→17:13)
[2019-09-22] MEDS ORDERED: Furosemide 40 MG in 0.9 % Sodium Chloride 50 ML IVPB ONE (08:44)
[2019-09-22 10:37] LABS: INR 1.2; Prothrombin Time 13.4 Seconds (9.4-12.1)
[2019-09-22] MEDS: Potassium Chloride Elixir 20 MEQ/15 ML UDC GTUBE SCH ×2 (12:43→20:16)
[2019-09-22] MEDS: Furosemide 40 MG/4 ML VIAL IVP SCH ×2 (12:43→20:16)
[2019-09-22] MEDS: Artificial Tears SOLN 15 ML BOTTLE BOTH EYES PRN (20:17)
[2019-09-22] MEDS: D5% in 0.9% NACL 1,000 ML IVC SCH (22:36)
[2019-09-22 23:09] LABS: BUN/Creatinine Ratio 11 (6-26); Blood Urea Nitrogen 9 mg/dL (6-20); Calcium 8.5 mg/dL (8.6-10.3); Carbon Dioxide 31 mEq/L (23-29); Chloride 101 mEq/L (98-107); Glucose 200 mg/dL (70-105); Magnesium 1.5 mg/dL (1.6-2.6); Osmolality,Calculated 292 (280-300); Potassium 3.9 mEq/L (3.5-5.1); Sodium 139 mEq/L (136-145); eGFR For African Americans > 60 (> 60); eGFR For Non-African Americans > 60 (> 60)
[2019-09-23] MEDS: Artificial Tears SOLN 15 ML BOTTLE BOTH EYES PRN
[2019-09-23] MEDS: Acyclovir 600 MG in D5% in Water 250 ML IVPB SCH ×4 (00:10→23:06)
[2019-09-23] MEDS: Piperacillin/Tazobactam 3.375 GM in 0.9 % Sodium Chloride Mini Bag 100 ML IVPB SCH ×3 (01:20→21:20)
[2019-09-23] MEDS: Artificial Tears SOLN 15 ML BOTTLE BOTH EYES SCH ×7 (03:31→23:05)
[2019-09-23] MEDS: Ipratropium/Albuterol Neb 3 ML IH SCH ×6 (04:03→23:35)
[2019-09-23 04:31] LABS: ABG Base Excess 7 mEq/L (-2 to 3); ABG HCO3 32 mEq/L (21-27); ABG Oxygen Saturation 94 % (95-98); ABG PCO2 46 mmHg (35-45); ABG PH 7.45 pH Units (7.32-7.45); ABG PO2 68 mmHg (85-104); ABG TCO2 33 mEq/L (20-26); Blood Gas Modality AF; Blood Gas VT 450 cc
[2019-09-23 05:18] LABS: VBG Ionized Calcium 1.08 mmol/L (1.15-1.35)
[2019-09-23] MEDS: *HR* Heparin 5,000 UNIT/ML VIAL SQ SCH ×2 (05:37→17:16)
[2019-09-23] MEDS: Insulin LISPRO 300 UNITS/3 ML VIAL SQ SCH ×5 (05:37→23:06)
[2019-09-23] MEDS: Calcium Gluconate 1gm/50mL 1 GM/50 ML BAG IVPB PRN (05:48)
[2019-09-23 06:02] LABS: Basophils # 0.1 K/mcL (0.0-0.2); Basophils % 0.5 %; Eosinophils # 0.2 K/mcL (0.0-0.6); Eosinophils % 1.9 %; Hematocrit 35.1 % (35.3-44.9); Hemoglobin 11.1 g/dL (11.5-15.4); Immature Granulocytes % 0.8 % (0-4); Lymphocytes # 1.6 K/mcL (0.6-4.6); Lymphocytes % 15.7 %; Mean Corpuscular HGB Conc 31.6 g/dL (31.6-35.5); Mean Corpuscular Hemoglobin 28.9 pg (28.0-33.3); Mean Corpuscular Volume 91.4 fL (83.0-100.0); Mean Platelet Volume 9.8 fL (9.4-12.4); Monocytes # 0.8 K/mcL (0.0-1.3); Neutrophils # 7.4 K/mcL (1.6-8.9); Platelet Count 267 K/mcL (140-400); Red Blood Count 3.84 M/mcL (3.82-4.97); Segmented Neutrophils % 73.1 %; White Blood Count 10.1 K/mcL (4.3-11.1)
[2019-09-23 06:57] LABS: BUN/Creatinine Ratio 14 (6-26); Blood Urea Nitrogen 11 mg/dL (6-20); Calcium 8.3 mg/dL (8.6-10.3); Carbon Dioxide 32 mEq/L (23-29); Chloride 97 mEq/L (98-107); Glucose 315 mg/dL (70-105); Magnesium 1.7 mg/dL (1.6-2.6); Osmolality,Calculated 297 (280-300); Phosphorous 2.7 mg/dL (2.7-4.5); Potassium 3.9 mEq/L (3.5-5.1); Sodium 138 mEq/L (136-145); eGFR For African Americans > 60 (> 60); eGFR For Non-African Americans > 60 (> 60)
[2019-09-23] MEDS: Chlorhexidine Rinse 15 ML MOUTHWASH MM SCH ×2 (08:58→21:14)
[2019-09-23] MEDS: Potassium Chloride Elixir 20 MEQ/15 ML UDC GTUBE SCH ×2 (08:58→21:14)
[2019-09-23] MEDS: Pantoprazole 40 MG VIAL IVP SCH (08:59)
[2019-09-23] MEDS: Furosemide 40 MG/4 ML VIAL IVP SCH ×2 (09:01→21:14)
[2019-09-23] MEDS: Budesonide/Formoterol 160/4.5 1 PUFF INH IH SCH ×2 (11:19→20:04)
[2019-09-23] MEDS ORDERED: Insulin LISPRO 300 UNITS/3 ML VIAL SQ SCH (12:00)
[2019-09-23] MEDS: polyethylene glycoL 3350 17 GM POWD.PACK PO SCH (17:16)
[2019-09-23] MEDS: FentaNYL (PF) 1,000 MCG in 0.9 % Sodium Chloride 80 ML IVC SCH (19:59)
[2019-09-23] MEDS: Insulin DETEMIR 100 UNIT/ML X5UNITS SQ SCH (21:14)
[2019-09-23] MEDS: Docusate Oral Soln 100 MG/10 ML UDC GTUBE SCH (21:14)
[2019-09-24] MEDS: Piperacillin/Tazobactam 3.375 GM in 0.9 % Sodium Chloride Mini Bag 100 ML IVPB SCH ×3 (01:04→18:34)
[2019-09-24] MEDS: Ipratropium/Albuterol Neb 3 ML IH SCH ×6 (03:37→23:50)
[2019-09-24] MEDS: Insulin LISPRO 300 UNITS/3 ML VIAL SQ SCH ×6 (04:09→23:34)
[2019-09-24] MEDS: Artificial Tears SOLN 15 ML BOTTLE BOTH EYES SCH ×6 (04:09→23:34)
[2019-09-24] MEDS: FentaNYL (PF) 1,000 MCG in 0.9 % Sodium Chloride 80 ML IVC SCH (04:09)
[2019-09-24 04:20] LABS: ABG Base Excess 14 mEq/L (-2 to 3); ABG HCO3 39 mEq/L (21-27); ABG Oxygen Saturation 97 % (95-98); ABG PCO2 53 mmHg (35-45); ABG PH 7.48 pH Units (7.32-7.45); ABG PO2 88 mmHg (85-104); ABG TCO2 41 mEq/L (20-26); Blood Gas Modality AF; Blood Gas VT 450 cc
[2019-09-24 04:43] LABS: Basophils # 0.1 K/mcL (0.0-0.2); Basophils % 0.6 %; Eosinophils # 0.2 K/mcL (0.0-0.6); Eosinophils % 2.1 %; Hematocrit 37.7 % (35.3-44.9); Hemoglobin 11.9 g/dL (11.5-15.4); Immature Granulocytes % 0.6 % (0-4); Lymphocytes % 17.9 %; Mean Corpuscular HGB Conc 31.6 g/dL (31.6-35.5); Mean Corpuscular Hemoglobin 28.7 pg (28.0-33.3); Mean Corpuscular Volume 91.1 fL (83.0-100.0); Mean Platelet Volume 9.5 fL (9.4-12.4); Monocytes # 1.1 K/mcL (0.0-1.3); Monocytes % 9.6 %; Neutrophils # 7.8 K/mcL (1.6-8.9); Platelet Count 315 K/mcL (140-400); Red Blood Count 4.14 M/mcL (3.82-4.97); Red Cell Distribution Width 14.8 % (11.5-14.5); Segmented Neutrophils % 69.2 %; White Blood Count 11.2 K/mcL (4.3-11.1)
[2019-09-24 04:44] LABS: VBG Ionized Calcium 1.09 mmol/L (1.15-1.35)
[2019-09-24 05:05] LABS: Magnesium 1.6 mg/dL (1.6-2.6); Phosphorous 3.8 mg/dL (2.7-4.5)
[2019-09-24] MEDS: Calcium Gluconate 1gm/50mL 1 GM/50 ML BAG IVPB PRN (05:06)
[2019-09-24] MEDS: *HR* Heparin 5,000 UNIT/ML VIAL SQ SCH ×2 (05:06→18:33)
[2019-09-24 05:09] LABS: BUN/Creatinine Ratio 13 (6-26); Blood Urea Nitrogen 10 mg/dL (6-20); Carbon Dioxide 34 mEq/L (23-29); Chloride 97 mEq/L (98-107); Glucose 154 mg/dL (70-105); Osmolality,Calculated 288 (280-300); Potassium 3.8 mEq/L (3.5-5.1); Sodium 138 mEq/L (136-145); eGFR For African Americans > 60 (> 60); eGFR For Non-African Americans > 60 (> 60)
[2019-09-24] MEDS: Potassium Chloride 40 MEQ/200 ML BAG IVPB PRN ×2 (05:14→06:18)
[2019-09-24] MEDS: D5% in 0.9% NACL 1,000 ML IVC SCH (06:08)
[2019-09-24] MEDS: Budesonide/Formoterol 160/4.5 1 PUFF INH IH SCH ×2 (08:30→19:44)
[2019-09-24] MEDS: Docusate Oral Soln 100 MG/10 ML UDC GTUBE SCH ×2 (09:43→19:38)
[2019-09-24] MEDS: Furosemide 40 MG/4 ML VIAL IVP SCH ×2 (09:43→19:39)
[2019-09-24] MEDS: Potassium Chloride Elixir 20 MEQ/15 ML UDC GTUBE SCH ×2 (09:43→19:39)
[2019-09-24] MEDS: polyethylene glycoL 3350 17 GM POWD.PACK PO SCH (09:43)
[2019-09-24] MEDS: Pantoprazole 40 MG VIAL IVP SCH (09:43)
[2019-09-24] MEDS: Chlorhexidine Rinse 15 ML MOUTHWASH MM SCH ×2 (09:44→19:39)
[2019-09-24] MEDS: Acyclovir 600 MG in D5% in Water 250 ML IVPB SCH ×3 (09:44→23:33)
[2019-09-24] MEDS: Insulin DETEMIR 100 UNIT/ML X5UNITS SQ SCH ×2 (10:34→19:41)
[2019-09-24 16:19] LABS: ABG Base Excess 13 mEq/L (-2 to 3); ABG HCO3 38 mEq/L (21-27); ABG Oxygen Saturation 95 % (95-98); ABG PCO2 50 mmHg (35-45); ABG PH 7.49 pH Units (7.32-7.45); ABG PO2 71 mmHg (85-104); ABG TCO2 40 mEq/L (20-26); Blood Gas Modality AF; Blood Gas VT 420 cc
[2019-09-24] MEDS: Artificial Tears SOLN 15 ML BOTTLE BOTH EYES PRN (18:36)
[2019-09-25] MEDS: Piperacillin/Tazobactam 3.375 GM in 0.9 % Sodium Chloride Mini Bag 100 ML IVPB SCH ×3 (02:25→16:56)
[2019-09-25 03:24] LABS: Basophils # 0.1 K/mcL (0.0-0.2); Basophils % 0.7 %; Eosinophils # 0.3 K/mcL (0.0-0.6); Eosinophils % 1.9 %; Hematocrit 38.6 % (35.3-44.9); Hemoglobin 11.8 g/dL (11.5-15.4); Immature Granulocytes % 0.9 % (0-4); Lymphocytes # 1.9 K/mcL (0.6-4.6); Lymphocytes % 14.7 %; Mean Corpuscular HGB Conc 30.6 g/dL (31.6-35.5); Mean Corpuscular Hemoglobin 28.2 pg (28.0-33.3); Mean Corpuscular Volume 92.3 fL (83.0-100.0); Mean Platelet Volume 9.4 fL (9.4-12.4); Monocytes # 1.1 K/mcL (0.0-1.3); Monocytes % 8.7 %; Neutrophils # 9.4 K/mcL (1.6-8.9); Platelet Count 322 K/mcL (140-400); Red Blood Count 4.18 M/mcL (3.82-4.97); Segmented Neutrophils % 73.1 %; White Blood Count 12.9 K/mcL (4.3-11.1)
[2019-09-25 03:28] LABS: VBG Ionized Calcium 1.15 mmol/L (1.15-1.35)
[2019-09-25] MEDS: Ipratropium/Albuterol Neb 3 ML IH SCH ×6 (03:30→23:44)
[2019-09-25 03:45] LABS: Magnesium 2.2 mg/dL (1.6-2.6); Phosphorous 4.7 mg/dL (2.7-4.5)
[2019-09-25 03:46] LABS: BUN/Creatinine Ratio 12 (6-26); Blood Urea Nitrogen 13 mg/dL (6-20); Calcium 9.2 mg/dL (8.6-10.3); Carbon Dioxide 32 mEq/L (23-29); Chloride 98 mEq/L (98-107); Glucose 166 mg/dL (70-105); Osmolality,Calculated 290 (280-300); Potassium 3.3 mEq/L (3.5-5.1); Sodium 138 mEq/L (136-145); eGFR For African Americans > 60 (> 60); eGFR For Non-African Americans 51 (> 60)
[2019-09-25] MEDS: Artificial Tears SOLN 15 ML BOTTLE BOTH EYES SCH ×6 (04:11→23:59)
[2019-09-25] MEDS: FentaNYL (PF) 1,000 MCG in 0.9 % Sodium Chloride 80 ML IVC SCH (04:11)
[2019-09-25] MEDS: Insulin LISPRO 300 UNITS/3 ML VIAL SQ SCH ×6 (04:11→23:59)
[2019-09-25] MEDS: Potassium Chloride 40 MEQ/200 ML BAG IVPB PRN ×3 (04:15→17:05)
[2019-09-25] MEDS: *HR* Heparin 5,000 UNIT/ML VIAL SQ SCH ×2 (05:06→16:56)
[2019-09-25 05:18] LABS: ABG Base Excess 7 mEq/L (-2 to 3); ABG HCO3 33 mEq/L (21-27); ABG Oxygen Saturation 96 % (95-98); ABG PCO2 51 mmHg (35-45); ABG PH 7.41 pH Units (7.32-7.45); ABG PO2 81 mmHg (85-104); ABG TCO2 34 mEq/L (20-26); Blood Gas VT 350 cc
[2019-09-25] MEDS: Budesonide/Formoterol 160/4.5 1 PUFF INH IH SCH ×2 (07:45→19:43)
[2019-09-25] MEDS: Chlorhexidine Rinse 15 ML MOUTHWASH MM SCH (08:40)
[2019-09-25] MEDS: Acyclovir 600 MG in D5% in Water 250 ML IVPB SCH ×3 (08:40→23:58)
[2019-09-25] MEDS: Furosemide 40 MG/4 ML VIAL IVP SCH ×2 (08:41→19:57)
[2019-09-25] MEDS: Pantoprazole 40 MG VIAL IVP SCH (08:41)
[2019-09-25] MEDS: Insulin DETEMIR 100 UNIT/ML X5UNITS SQ SCH ×2 (08:42→19:57)
[2019-09-25] MEDS: polyethylene glycoL 3350 17 GM POWD.PACK PO SCH (08:42)
[2019-09-25] MEDS: Potassium Chloride Elixir 20 MEQ/15 ML UDC GTUBE SCH ×2 (08:42→19:57)
[2019-09-25] MEDS: Docusate Oral Soln 100 MG/10 ML UDC GTUBE SCH ×2 (08:43→19:56)
[2019-09-25 11:04] LABS: Calcium 8.9 mg/dL (8.6-10.3); Potassium 3.6 mEq/L (3.5-5.1)
[2019-09-26] MEDS: Piperacillin/Tazobactam 3.375 GM in 0.9 % Sodium Chloride Mini Bag 100 ML IVPB SCH ×3 (01:00→17:04)
[2019-09-26 03:36] LABS: Basophils # 0.1 K/mcL (0.0-0.2); Basophils % 0.7 %; Eosinophils # 0.3 K/mcL (0.0-0.6); Eosinophils % 2.4 %; Hematocrit 36.9 % (35.3-44.9); Hemoglobin 11.6 g/dL (11.5-15.4); Immature Granulocytes % 0.8 % (0-4); Lymphocytes % 16.1 %; Mean Corpuscular HGB Conc 31.4 g/dL (31.6-35.5); Mean Corpuscular Hemoglobin 29.2 pg (28.0-33.3); Mean Corpuscular Volume 92.9 fL (83.0-100.0); Mean Platelet Volume 9.6 fL (9.4-12.4); Monocytes # 0.9 K/mcL (0.0-1.3); Monocytes % 7.3 %; Neutrophils # 8.8 K/mcL (1.6-8.9); Platelet Count 329 K/mcL (140-400); Red Blood Count 3.97 M/mcL (3.82-4.97); Red Cell Distribution Width 14.9 % (11.5-14.5); Segmented Neutrophils % 72.7 %; White Blood Count 12.1 K/mcL (4.3-11.1)
[2019-09-26] MEDS: Artificial Tears SOLN 15 ML BOTTLE BOTH EYES SCH ×6 (03:38→23:57)
[2019-09-26] MEDS: Insulin LISPRO 300 UNITS/3 ML VIAL SQ SCH ×6 (03:38→23:57)
[2019-09-26] MEDS: FentaNYL (PF) 1,000 MCG in 0.9 % Sodium Chloride 80 ML IVC SCH (03:39)
[2019-09-26] MEDS: Ipratropium/Albuterol Neb 3 ML IH SCH ×6 (03:42→23:32)
[2019-09-26 03:44] LABS: VBG Ionized Calcium 1.18 mmol/L (1.15-1.35)
[2019-09-26 03:55] LABS: Calcium 9.1 mg/dL (8.6-10.3); Magnesium 1.9 mg/dL (1.6-2.6); Phosphorous 4.6 mg/dL (2.7-4.5); Potassium 3.4 mEq/L (3.5-5.1)
[2019-09-26 05:14] LABS: ABG Base Excess 2 mEq/L (-2 to 3); ABG HCO3 28 mEq/L (21-27); ABG Oxygen Saturation 98 % (95-98); ABG PCO2 50 mmHg (35-45); ABG PH 7.37 pH Units (7.32-7.45); ABG PO2 118 mmHg (85-104); ABG TCO2 30 mEq/L (20-26); Blood Gas Modality ASSIST CONTROL; Blood Gas VT 350 cc
[2019-09-26] MEDS: *HR* Heparin 5,000 UNIT/ML VIAL SQ SCH ×2 (05:23→17:03)
[2019-09-26] MEDS: Potassium Chloride 40 MEQ/200 ML BAG IVPB PRN ×3 (05:25→15:53)
[2019-09-26] MEDS: Budesonide/Formoterol 160/4.5 1 PUFF INH IH SCH ×2 (07:16→20:08)
[2019-09-26] MEDS: Acyclovir 600 MG in D5% in Water 250 ML IVPB SCH ×3 (07:46→23:56)
[2019-09-26] MEDS: Chlorhexidine Rinse 15 ML MOUTHWASH MM SCH ×2 (08:16→21:01)
[2019-09-26] MEDS: Docusate Oral Soln 100 MG/10 ML UDC GTUBE SCH ×2 (08:16→21:01)
[2019-09-26] MEDS: Insulin DETEMIR 100 UNIT/ML X5UNITS SQ SCH ×2 (08:17→21:01)
[2019-09-26] MEDS: Pantoprazole 40 MG VIAL IVP SCH (08:17)
[2019-09-26] MEDS: Potassium Chloride Elixir 20 MEQ/15 ML UDC GTUBE SCH ×2 (08:17→21:02)
[2019-09-26] MEDS: polyethylene glycoL 3350 17 GM POWD.PACK PO SCH (08:17)
[2019-09-26] MEDS: Furosemide 40 MG/4 ML VIAL IVP SCH ×2 (08:17→21:01)
[2019-09-26] MEDS ORDERED: Haloperidol Lactate 5 MG/ML VIAL IVP ONE (09:30)
[2019-09-26 14:32] LABS: Magnesium 2.2 mg/dL (1.6-2.6); Potassium 3.5 mEq/L (3.5-5.1)
[2019-09-27] MEDS: Piperacillin/Tazobactam 3.375 GM in 0.9 % Sodium Chloride Mini Bag 100 ML IVPB SCH ×3 (01:05→17:58)
[2019-09-27] MEDS: Ipratropium/Albuterol Neb 3 ML IH SCH ×6 (03:15→23:25)
[2019-09-27] MEDS: Insulin LISPRO 300 UNITS/3 ML VIAL SQ SCH ×6 (04:06→23:26)
[2019-09-27] MEDS: Artificial Tears SOLN 15 ML BOTTLE BOTH EYES SCH ×6 (04:06→23:24)
[2019-09-27] MEDS: FentaNYL (PF) 1,000 MCG in 0.9 % Sodium Chloride 80 ML IVC SCH (04:06)
[2019-09-27 04:10] LABS: Basophils # 0.1 K/mcL (0.0-0.2); Basophils % 0.5 %; Eosinophils # 0.3 K/mcL (0.0-0.6); Eosinophils % 1.9 %; Hematocrit 37.1 % (35.3-44.9); Hemoglobin 11.9 g/dL (11.5-15.4); Immature Granulocytes % 0.9 % (0-4); Lymphocytes # 2.2 K/mcL (0.6-4.6); Lymphocytes % 14.2 %; Mean Corpuscular HGB Conc 32.1 g/dL (31.6-35.5); Mean Corpuscular Hemoglobin 29.7 pg (28.0-33.3); Mean Corpuscular Volume 92.5 fL (83.0-100.0); Mean Platelet Volume 9.4 fL (9.4-12.4); Monocytes # 1.2 K/mcL (0.0-1.3); Monocytes % 7.8 %; Neutrophils # 11.5 K/mcL (1.6-8.9); Platelet Count 343 K/mcL (140-400); Red Blood Count 4.01 M/mcL (3.82-4.97); Red Cell Distribution Width 14.9 % (11.5-14.5); Segmented Neutrophils % 74.7 %; White Blood Count 15.3 K/mcL (4.3-11.1)
[2019-09-27 04:21] LABS: VBG Ionized Calcium 1.23 mmol/L (1.15-1.35)
[2019-09-27 04:27] LABS: Phosphorous 3.5 mg/dL (2.7-4.5)
[2019-09-27 04:29] LABS: Calcium 9.5 mg/dL (8.6-10.3); Potassium 3.3 mEq/L (3.5-5.1)
[2019-09-27 05:15] LABS: ABG Base Excess 4 mEq/L (-2 to 3); ABG HCO3 29 mEq/L (21-27); ABG Oxygen Saturation 95 % (95-98); ABG PCO2 44 mmHg (35-45); ABG PH 7.42 pH Units (7.32-7.45); ABG PO2 73 mmHg (85-104); ABG TCO2 30 mEq/L (20-26); Blood Gas VT 350 cc
[2019-09-27] MEDS: Potassium Chloride 40 MEQ/200 ML BAG IVPB PRN ×2 (05:35→06:17)
[2019-09-27] MEDS: *HR* Heparin 5,000 UNIT/ML VIAL SQ SCH ×2 (05:35→21:01)
[2019-09-27] MEDS: Budesonide/Formoterol 160/4.5 1 PUFF INH IH SCH ×2 (07:41→19:45)
[2019-09-27] MEDS: Acyclovir 600 MG in D5% in Water 250 ML IVPB SCH ×3 (07:45→23:23)
[2019-09-27] MEDS: Docusate Oral Soln 100 MG/10 ML UDC GTUBE SCH ×2 (07:46→20:59)
[2019-09-27] MEDS: Chlorhexidine Rinse 15 ML MOUTHWASH MM SCH ×2 (07:46→20:59)
[2019-09-27] MEDS: polyethylene glycoL 3350 17 GM POWD.PACK PO SCH (07:46)
[2019-09-27] MEDS: Insulin DETEMIR 100 UNIT/ML X5UNITS SQ SCH ×2 (07:47→21:00)
[2019-09-27] MEDS: Furosemide 40 MG/4 ML VIAL IVP SCH ×2 (07:47→20:59)
[2019-09-27] MEDS: Pantoprazole 40 MG VIAL IVP SCH (07:47)
[2019-09-27] MEDS: Potassium Chloride Elixir 20 MEQ/15 ML UDC GTUBE SCH ×2 (07:48→21:01)
[2019-09-28] MEDS: Piperacillin/Tazobactam 3.375 GM in 0.9 % Sodium Chloride Mini Bag 100 ML IVPB SCH ×3 (01:46→18:44)
[2019-09-28 03:14] LABS: Basophils # 0.1 K/mcL (0.0-0.2); Basophils % 0.5 %; Eosinophils # 0.3 K/mcL (0.0-0.6); Eosinophils % 1.9 %; Hematocrit 37.4 % (35.3-44.9); Hemoglobin 11.5 g/dL (11.5-15.4); Immature Granulocytes % 1.1 % (0-4); Lymphocytes # 1.8 K/mcL (0.6-4.6); Lymphocytes % 13.4 %; Mean Corpuscular HGB Conc 30.7 g/dL (31.6-35.5); Mean Corpuscular Hemoglobin 28.6 pg (28.0-33.3); Mean Platelet Volume 9.7 fL (9.4-12.4); Monocytes # 0.9 K/mcL (0.0-1.3); Monocytes % 6.7 %; Neutrophils # 10.3 K/mcL (1.6-8.9); Platelet Count 377 K/mcL (140-400); Red Blood Count 4.02 M/mcL (3.82-4.97); Red Cell Distribution Width 14.9 % (11.5-14.5); Segmented Neutrophils % 76.4 %; White Blood Count 13.5 K/mcL (4.3-11.1)
[2019-09-28 03:41] LABS: Calcium 9.1 mg/dL (8.6-10.3); Potassium 3.3 mEq/L (3.5-5.1)
[2019-09-28] MEDS: Ipratropium/Albuterol Neb 3 ML IH SCH ×6 (03:44→23:39)
[2019-09-28] MEDS: FentaNYL (PF) 1,000 MCG in 0.9 % Sodium Chloride 80 ML IVC SCH (03:59)
[2019-09-28] MEDS: Artificial Tears SOLN 15 ML BOTTLE BOTH EYES SCH ×6 (03:59→23:31)
[2019-09-28] MEDS: Insulin LISPRO 300 UNITS/3 ML VIAL SQ SCH ×6 (04:47→23:32)
[2019-09-28] MEDS: *HR* Heparin 5,000 UNIT/ML VIAL SQ SCH ×3 (05:07→21:22)
[2019-09-28 05:17] LABS: ABG Base Excess 1 mEq/L (-2 to 3); ABG HCO3 27 mEq/L (21-27); ABG Oxygen Saturation 95 % (95-98); ABG PCO2 47 mmHg (35-45); ABG PH 7.37 pH Units (7.32-7.45); ABG PO2 78 mmHg (85-104); ABG TCO2 29 mEq/L (20-26); Blood Gas Modality AF; Blood Gas VT 350 cc
[2019-09-28 06:02] LABS: Magnesium 1.9 mg/dL (1.6-2.6); Phosphorous 3.2 mg/dL (2.7-4.5)
[2019-09-28] MEDS: Budesonide/Formoterol 160/4.5 1 PUFF INH IH SCH ×2 (07:46→19:48)
[2019-09-28] MEDS: Docusate Oral Soln 100 MG/10 ML UDC GTUBE SCH ×2 (08:45→20:10)
[2019-09-28] MEDS: polyethylene glycoL 3350 17 GM POWD.PACK PO SCH (08:45)
[2019-09-28] MEDS: levETIRAcetam 500 MG/5 ML UDC GTUBE SCH ×2 (08:45→20:10)
[2019-09-28] MEDS: Potassium Chloride Elixir 20 MEQ/15 ML UDC GTUBE SCH ×2 (08:45→20:11)
[2019-09-28] MEDS: Chlorhexidine Rinse 15 ML MOUTHWASH MM SCH ×2 (08:45→20:10)
[2019-09-28] MEDS: Pantoprazole 40 MG VIAL IVP SCH (08:45)
[2019-09-28] MEDS: Acyclovir 600 MG in D5% in Water 250 ML IVPB SCH ×3 (08:49→23:31)
[2019-09-28] MEDS: Insulin DETEMIR 100 UNIT/ML X5UNITS SQ SCH ×2 (08:53→20:10)
[2019-09-28] MEDS: Furosemide 40 MG/4 ML VIAL IVP SCH ×2 (12:07→20:10)
[2019-09-28] MEDS: *HR* FentaNYL (PF) 100 MCG/2 ML VIAL IVP PRN (21:28)
[2019-09-29] MEDS: Piperacillin/Tazobactam 3.375 GM in 0.9 % Sodium Chloride Mini Bag 100 ML IVPB SCH ×3 (02:06→18:12)
[2019-09-29] MEDS: *HR* FentaNYL (PF) 100 MCG/2 ML VIAL IVP PRN (02:16)
[2019-09-29 03:29] LABS: Basophils # 0.1 K/mcL (0.0-0.2); Basophils % 0.6 %; Eosinophils # 0.3 K/mcL (0.0-0.6); Eosinophils % 2.3 %; Hematocrit 35.8 % (35.3-44.9); Hemoglobin 11.2 g/dL (11.5-15.4); Immature Granulocytes % 1.2 % (0-4); Lymphocytes # 1.9 K/mcL (0.6-4.6); Lymphocytes % 13.9 %; Mean Corpuscular HGB Conc 31.3 g/dL (31.6-35.5); Mean Corpuscular Hemoglobin 29.3 pg (28.0-33.3); Mean Corpuscular Volume 93.7 fL (83.0-100.0); Mean Platelet Volume 9.6 fL (9.4-12.4); Monocytes % 7.3 %; Platelet Count 356 K/mcL (140-400); Red Blood Count 3.82 M/mcL (3.82-4.97); Red Cell Distribution Width 15.1 % (11.5-14.5); Segmented Neutrophils % 74.7 %; White Blood Count 13.4 K/mcL (4.3-11.1)
[2019-09-29] MEDS: Ipratropium/Albuterol Neb 3 ML IH SCH ×6 (03:45→23:46)
[2019-09-29 03:48] LABS: Potassium 3.3 mEq/L (3.5-5.1)
[2019-09-29 04:15] LABS: ABG Base Excess 4 mEq/L (-2 to 3); ABG HCO3 30 mEq/L (21-27); ABG Oxygen Saturation 98 % (95-98); ABG PCO2 51 mmHg (35-45); ABG PH 7.38 pH Units (7.32-7.45); ABG PO2 107 mmHg (85-104); ABG TCO2 31 mEq/L (20-26); Blood Gas Modality ASSIST CONTROL; Blood Gas VT 350 cc
[2019-09-29] MEDS: FentaNYL (PF) 1,000 MCG in 0.9 % Sodium Chloride 80 ML IVC SCH (04:23)
[2019-09-29] MEDS: Artificial Tears SOLN 15 ML BOTTLE BOTH EYES SCH ×6 (04:23→23:23)
[2019-09-29] MEDS: Insulin LISPRO 300 UNITS/3 ML VIAL SQ SCH ×6 (04:27→23:41)
[2019-09-29] MEDS: *HR* Heparin 5,000 UNIT/ML VIAL SQ SCH ×3 (05:19→21:01)
[2019-09-29] MEDS: Potassium Chloride 40 MEQ/200 ML BAG IVPB PRN ×2 (05:20→06:14)
[2019-09-29] MEDS: Budesonide/Formoterol 160/4.5 1 PUFF INH IH SCH ×2 (07:36→19:45)
[2019-09-29] MEDS: Chlorhexidine Rinse 15 ML MOUTHWASH MM SCH ×2 (08:31→20:47)
[2019-09-29] MEDS: Acyclovir 600 MG in D5% in Water 250 ML IVPB SCH ×3 (08:35→23:52)
[2019-09-29] MEDS: polyethylene glycoL 3350 17 GM POWD.PACK PO SCH (08:36)
[2019-09-29] MEDS: levETIRAcetam 500 MG/5 ML UDC GTUBE SCH (08:36)
[2019-09-29] MEDS: Insulin DETEMIR 100 UNIT/ML X5UNITS SQ SCH ×2 (08:36→21:02)
[2019-09-29] MEDS: Pantoprazole 40 MG VIAL IVP SCH (08:36)
[2019-09-29] MEDS: Docusate Oral Soln 100 MG/10 ML UDC GTUBE SCH ×2 (08:36→20:47)
[2019-09-29] MEDS: Furosemide 40 MG/4 ML VIAL IVP SCH ×2 (08:52→21:01)
[2019-09-29] MEDS: Potassium Chloride Elixir 20 MEQ/15 ML UDC GTUBE SCH (09:14)
[2019-09-29 15:46] LABS: BUN/Creatinine Ratio 27 (6-26); Blood Urea Nitrogen 30 mg/dL (6-20); Calcium 8.9 mg/dL (8.6-10.3); Carbon Dioxide 26 mEq/L (23-29); Chloride 106 mEq/L (98-107); Glucose 159 mg/dL (70-105); Osmolality,Calculated 300 (280-300); Potassium 3.4 mEq/L (3.5-5.1); Sodium 140 mEq/L (136-145); eGFR For African Americans > 60 (> 60); eGFR For Non-African Americans 51 (> 60)
[2019-09-30] MEDS: Piperacillin/Tazobactam 3.375 GM in 0.9 % Sodium Chloride Mini Bag 100 ML IVPB SCH ×2 (01:55→11:07)
[2019-09-30] MEDS: Ipratropium/Albuterol Neb 3 ML IH SCH ×7 (03:30→23:39)
[2019-09-30 03:57] LABS: Basophils # 0.1 K/mcL (0.0-0.2); Basophils % 0.7 %; Eosinophils # 0.3 K/mcL (0.0-0.6); Eosinophils % 2.6 %; Hematocrit 36.2 % (35.3-44.9); Hemoglobin 11.5 g/dL (11.5-15.4); Immature Granulocytes % 0.9 % (0-4); Lymphocytes % 15.7 %; Mean Corpuscular HGB Conc 31.8 g/dL (31.6-35.5); Mean Corpuscular Hemoglobin 29.4 pg (28.0-33.3); Mean Corpuscular Volume 92.6 fL (83.0-100.0); Mean Platelet Volume 9.8 fL (9.4-12.4); Monocytes # 0.9 K/mcL (0.0-1.3); Monocytes % 6.9 %; Neutrophils # 9.4 K/mcL (1.6-8.9); Platelet Count 374 K/mcL (140-400); Red Blood Count 3.91 M/mcL (3.82-4.97); Red Cell Distribution Width 15.3 % (11.5-14.5); Segmented Neutrophils % 73.2 %; White Blood Count 12.9 K/mcL (4.3-11.1)
[2019-09-30 04:41] LABS: BUN/Creatinine Ratio 24 (6-26); Blood Urea Nitrogen 26 mg/dL (6-20); Calcium 9.1 mg/dL (8.6-10.3); Carbon Dioxide 27 mEq/L (23-29); Chloride 105 mEq/L (98-107); Glucose 123 mg/dL (70-105); Osmolality,Calculated 296 (280-300); Potassium 3.2 mEq/L (3.5-5.1); Sodium 140 mEq/L (136-145); eGFR For African Americans > 60 (> 60); eGFR For Non-African Americans 53 (> 60)
[2019-09-30] MEDS: Artificial Tears SOLN 15 ML BOTTLE BOTH EYES SCH ×5 (04:58→21:09)
[2019-09-30] MEDS: Insulin LISPRO 300 UNITS/3 ML VIAL SQ SCH ×5 (04:59→21:45)
[2019-09-30] MEDS: Potassium Chloride 40 MEQ/200 ML BAG IVPB PRN ×2 (05:01→06:37)
[2019-09-30] MEDS: *HR* Heparin 5,000 UNIT/ML VIAL SQ SCH ×3 (05:01→21:18)
[2019-09-30] MEDS: Budesonide/Formoterol 160/4.5 1 PUFF INH IH SCH ×2 (07:23→20:06)
[2019-09-30] MEDS: FentaNYL (PF) 1,000 MCG in 0.9 % Sodium Chloride 80 ML IVC SCH (07:24)
[2019-09-30] MEDS: polyethylene glycoL 3350 17 GM POWD.PACK PO SCH (07:25)
[2019-09-30] MEDS: Docusate Oral Soln 100 MG/10 ML UDC GTUBE SCH (07:25)
[2019-09-30] MEDS: Furosemide 40 MG/4 ML VIAL IVP SCH (08:54)
[2019-09-30] MEDS: Chlorhexidine Rinse 15 ML MOUTHWASH MM SCH ×2 (08:55→21:18)
[2019-09-30] MEDS: Pantoprazole 40 MG VIAL IVP SCH (08:55)
[2019-09-30] MEDS: Insulin DETEMIR 100 UNIT/ML X5UNITS SQ SCH ×2 (09:04→21:18)
[2019-09-30] MEDS: Acyclovir 600 MG in D5% in Water 250 ML IVPB SCH (09:52)
[2019-09-30] MEDS ORDERED: Dextrose Gel 15 GM/37.5 ML TUBE PO PRN ×2 (11:32)
[2019-09-30] MEDS ORDERED: *HR* Dextrose 50 % in Water (Syg) 50 ML SYRINGE IVP PRN (11:32)
[2019-09-30] MEDS ORDERED: D5% in Water 1,000 ML IVC PRN (11:32)
[2019-09-30] MEDS ORDERED: Artificial Tears SOLN 15 ML BOTTLE BOTH EYES PRN (11:32)
[2019-09-30] MEDS ORDERED: E-Z-HD (BARIUM SULF) SUSPENSION PO ONE (12:33)
[2019-09-30] MEDS ORDERED: E-Z-PAQUE (BARIUM SULF) SUSP 1 BOTTLE PO ONE (12:33)
[2019-09-30] MEDS ORDERED: Acyclovir 600 MG in D5% in Water 250 ML IVPB SCH (16:00)
[2019-09-30] MEDS ORDERED: Docusate Oral Soln 100 MG/10 ML UDC GTUBE SCH (21:00)
[2019-10-01] MEDS: Artificial Tears SOLN 15 ML BOTTLE BOTH EYES SCH ×4 (00:11→12:18)
[2019-10-01] MEDS: Ipratropium/Albuterol Neb 3 ML IH SCH ×5 (03:42→20:01)
[2019-10-01] MEDS: *HR* Heparin 5,000 UNIT/ML VIAL SQ SCH ×3 (06:07→21:10)
[2019-10-01] MEDS ORDERED: Potassium Chloride 40 MEQ, Lidocaine 1% 2 ML in 0.9 % Sodium Chloride 500 ML IVPB ONE (07:25)
[2019-10-01] MEDS: Budesonide/Formoterol 160/4.5 1 PUFF INH IH SCH ×2 (07:27→20:01)
[2019-10-01] MEDS: Insulin LISPRO 300 UNITS/3 ML VIAL SQ SCH ×4 (09:42→21:09)
[2019-10-01] MEDS: Insulin DETEMIR 100 UNIT/ML X5UNITS SQ SCH ×2 (09:43→21:09)
[2019-10-01] MEDS: Pantoprazole 40 MG VIAL IVP SCH (09:46)
[2019-10-01] MEDS: polyethylene glycoL 3350 17 GM POWD.PACK PO SCH (09:49)
[2019-10-01] MEDS: Chlorhexidine Rinse 15 ML MOUTHWASH MM SCH ×2 (09:50→21:09)
[2019-10-01 10:31] LABS: VBG Ionized Calcium 1.21 mmol/L (1.15-1.35)
[2019-10-01] MEDS ORDERED: Artificial Tears SOLN 15 ML BOTTLE BOTH EYES PRN (15:43)
[2019-10-01] MEDS: Melatonin 3 MG TABLET PO SCH (21:06)
[2019-10-02] MEDS: Ipratropium/Albuterol Neb 3 ML IH SCH ×7 (00:01→23:58)
[2019-10-02 04:24] LABS: Hematocrit 37.2 % (35.3-44.9); Hemoglobin 11.9 g/dL (11.5-15.4); Mean Corpuscular Hemoglobin 29.3 pg (28.0-33.3); Mean Corpuscular Volume 91.6 fL (83.0-100.0); Mean Platelet Volume 9.9 fL (9.4-12.4); Platelet Count 431 K/mcL (140-400); Red Blood Count 4.06 M/mcL (3.82-4.97); Red Cell Distribution Width 15.1 % (11.5-14.5); White Blood Count 11.5 K/mcL (4.3-11.1)
[2019-10-02 04:44] LABS: BUN/Creatinine Ratio 26 (6-26); Blood Urea Nitrogen 20 mg/dL (6-20); Calcium 9.4 mg/dL (8.6-10.3); Carbon Dioxide 25 mEq/L (23-29); Chloride 105 mEq/L (98-107); Glucose 179 mg/dL (70-105); Osmolality,Calculated 293 (280-300); Potassium 3.8 mEq/L (3.5-5.1); Sodium 138 mEq/L (136-145); eGFR For African Americans > 60 (> 60); eGFR For Non-African Americans > 60 (> 60)
[2019-10-02] MEDS: *HR* Heparin 5,000 UNIT/ML VIAL SQ SCH ×3 (05:26→21:40)
[2019-10-02] MEDS: Budesonide/Formoterol 160/4.5 1 PUFF INH IH SCH ×2 (07:30→20:10)
[2019-10-02] MEDS: Insulin LISPRO 300 UNITS/3 ML VIAL SQ SCH ×4 (08:12→21:38)
[2019-10-02] MEDS: Insulin DETEMIR 100 UNIT/ML X5UNITS SQ SCH ×2 (08:13→21:42)
[2019-10-02] MEDS: Pantoprazole 40 MG VIAL IVP SCH (08:14)
[2019-10-02] MEDS: Chlorhexidine Rinse 15 ML MOUTHWASH MM SCH ×2 (08:19→21:51)
[2019-10-02] MEDS: polyethylene glycoL 3350 17 GM POWD.PACK PO SCH (08:19)
[2019-10-02] MEDS: FLUoxetine 20 MG CAPSULE PO SCH (08:19)
[2019-10-02] MEDS: Cyanocobalamin (B-12) 1,000 MCG TABLET PO SCH (08:20)
[2019-10-02] MEDS: Gabapentin 100 MG CAPSULE PO SCH ×2 (14:36→21:38)
[2019-10-02] MEDS: carvediloL 25 MG TABLET PO SCH (17:16)
[2019-10-02] MEDS: Melatonin 3 MG TABLET PO SCH (21:52)
[2019-10-03] MEDS: Ipratropium/Albuterol Neb 3 ML IH SCH ×5 (03:56→20:03)
[2019-10-03 04:19] LABS: Hematocrit 36.2 % (35.3-44.9); Hemoglobin 11.5 g/dL (11.5-15.4); Mean Corpuscular HGB Conc 31.8 g/dL (31.6-35.5); Mean Corpuscular Hemoglobin 29.1 pg (28.0-33.3); Mean Corpuscular Volume 91.6 fL (83.0-100.0); Mean Platelet Volume 9.6 fL (9.4-12.4); Platelet Count 427 K/mcL (140-400); Red Blood Count 3.95 M/mcL (3.82-4.97); Red Cell Distribution Width 15.5 % (11.5-14.5); White Blood Count 10.3 K/mcL (4.3-11.1)
[2019-10-03 04:37] LABS: BUN/Creatinine Ratio 23 (6-26); Blood Urea Nitrogen 18 mg/dL (6-20); Calcium 9.4 mg/dL (8.6-10.3); Carbon Dioxide 25 mEq/L (23-29); Chloride 106 mEq/L (98-107); Glucose 174 mg/dL (70-105); Osmolality,Calculated 292 (280-300); Potassium 3.4 mEq/L (3.5-5.1); Sodium 138 mEq/L (136-145); eGFR For African Americans > 60 (> 60); eGFR For Non-African Americans > 60 (> 60)
[2019-10-03] MEDS: *HR* Heparin 5,000 UNIT/ML VIAL SQ SCH ×3 (05:24→20:56)
[2019-10-03] MEDS ORDERED: Potassium Chloride Elixir 20 MEQ/15 ML UDC PO ONE (07:10)
[2019-10-03] MEDS: Insulin LISPRO 300 UNITS/3 ML VIAL SQ SCH ×4 (07:46→20:25)
[2019-10-03] MEDS: polyethylene glycoL 3350 17 GM POWD.PACK PO SCH (07:46)
[2019-10-03] MEDS: Insulin DETEMIR 100 UNIT/ML X5UNITS SQ SCH ×2 (07:47→20:19)
[2019-10-03] MEDS: Cyanocobalamin (B-12) 1,000 MCG TABLET PO SCH (07:50)
[2019-10-03] MEDS: Chlorhexidine Rinse 15 ML MOUTHWASH MM SCH ×2 (07:50→20:26)
[2019-10-03] MEDS: FLUoxetine 20 MG CAPSULE PO SCH (07:50)
[2019-10-03] MEDS: Gabapentin 100 MG CAPSULE PO SCH ×3 (07:50→20:22)
[2019-10-03] MEDS: carvediloL 25 MG TABLET PO SCH ×2 (07:51→17:15)
[2019-10-03] MEDS: Furosemide 20 MG TABLET PO SCH (07:51)
[2019-10-03] MEDS: Ferrous Sulfate Oral Soln 300 MG/5 ML UDC PO SCH (07:51)
[2019-10-03] MEDS: Budesonide/Formoterol 160/4.5 1 PUFF INH IH SCH ×2 (07:59→20:03)
[2019-10-03] MEDS ORDERED: Haloperidol Lactate 5 MG/ML VIAL IVP PRN (12:34)
[2019-10-03] MEDS: Melatonin 3 MG TABLET PO SCH (20:24)
[2019-10-04] MEDS: Ipratropium/Albuterol Neb 3 ML IH SCH ×4 (00:07→11:16)
[2019-10-04] MEDS: *HR* Heparin 5,000 UNIT/ML VIAL SQ SCH (05:20)
[2019-10-04] MEDS: Budesonide/Formoterol 160/4.5 1 PUFF INH IH SCH (08:02)
[2019-10-04] MEDS: Insulin LISPRO 300 UNITS/3 ML VIAL SQ SCH (08:29)
[2019-10-04] MEDS: Cyanocobalamin (B-12) 1,000 MCG TABLET PO SCH (08:30)
[2019-10-04] MEDS: Ferrous Sulfate Oral Soln 300 MG/5 ML UDC PO SCH (08:31)
[2019-10-04] MEDS: carvediloL 25 MG TABLET PO SCH (08:31)
[2019-10-04] MEDS: Furosemide 20 MG TABLET PO SCH (08:31)
[2019-10-04] MEDS: FLUoxetine 20 MG CAPSULE PO SCH (08:31)
[2019-10-04] MEDS: Gabapentin 100 MG CAPSULE PO SCH (08:31)
[2019-10-04] MEDS: Chlorhexidine Rinse 15 ML MOUTHWASH MM SCH (08:32)
[2019-10-04] MEDS: polyethylene glycoL 3350 17 GM POWD.PACK PO SCH (08:32)
[2019-10-04] MEDS: Insulin DETEMIR 100 UNIT/ML X5UNITS SQ SCH (08:40)
[2019-10-04 11:06] VITALS: BP 112/72
== END 2019-10-04 12:38 ==
LOC: ICNU → OBSVTOIN 04:02 → SUATTDRO 04:02 → 2ANU 09-30 15:29
PROVIDERS: ADMIT Internal Medicine; ATTEND Internal Medicine

== ENCOUNTER 2021-10-16 21:10 | Inpatient (IN) ==
[2021-10-16] MEDS ORDERED: Melatonin 3 MG TABLET PO PRN (23:42)
[2021-10-16] MEDS ORDERED: Naloxone 0.4 MG/ML INJ IVP PRN (23:42)
[2021-10-16] MEDS ORDERED: Dextrose 4 GM Chewable Tablets PO PRN ×2 (23:47)
[2021-10-16] MEDS ORDERED: *HR* Dextrose 50 % in Water (Syg) 50 ML SYRINGE IVP PRN (23:47)
[2021-10-16] MEDS ORDERED: D5% in Water 1,000 ML IVC PRN (23:47)
[2021-10-17] MEDS ORDERED: 0.9 % Sodium Chloride 1,000 ML IVC SCH (01:00)
[2021-10-17] MEDS ORDERED: Ipratropium/Albuterol Neb 3 ML IH PRN (02:21)
[2021-10-17] MEDS: Cefepime HCl 2,000 MG in 0.9 % Sodium Chloride 10 ML IVP SCH ×3 (03:01→20:22)
[2021-10-17] MEDS ORDERED: Piperacillin/Tazobactam 3.375 GM in 0.9 % Sodium Chloride Mini Bag 100 ML IVPB SCH (06:00)
[2021-10-17 06:57] LABS: Eosinophils % 4.3 %; Hematocrit 37.8 % (35.3-44.9); Hemoglobin 11.9 g/dL (11.5-15.4); Immature Granulocytes % 0.5 % (0-4); Lymphocytes % 29.3 %; Mean Corpuscular HGB Conc 31.5 g/dL (31.6-35.5); Mean Corpuscular Volume 92.2 fL (83.0-100.0); Mean Platelet Volume 10.4 fL (9.4-12.4); Monocytes % 8.9 %; Platelet Count 310 K/mcL (140-400); Segmented Neutrophils % 56.3 %
[2021-10-17 06:58] LABS: Basophils # 0.1 K/mcL (0.0-0.2); Basophils % 0.7 %; Eosinophils # 0.4 K/mcL (0.0-0.6); Lymphocytes # 2.9 K/mcL (0.6-4.6); Monocytes # 0.9 K/mcL (0.0-1.3); Neutrophils # 5.7 K/mcL (1.6-8.9)
[2021-10-17 07:23] LABS: Alanine Aminotransferase 10 Units/L (7-52); Albumin 3.7 g/dL (3.5-5.7); Albumin/Globulin Ratio 1.4 (1.1-2.2); Alkaline Phosphatase 67 Units/L (34-104); Aspartate Amino Transferase 12 Units/L (13-39); BUN/Creatinine Ratio 19 (6-26); Bilirubin,Total 0.3 mg/dL (0.3-1.0); Blood Urea Nitrogen 18 mg/dL (6-20); Calcium 9.6 mg/dL (8.6-10.3); Carbon Dioxide 24 mEq/L (23-29); Chloride 103 mEq/L (98-107); Globulin 2.7 g/dL (2.4-3.5); Glucose 119 mg/dL (70-105); Magnesium 1.4 mg/dL (1.6-2.6); Osmolality,Calculated 291 (280-300); Phosphorous 3.7 mg/dL (2.7-4.5); Potassium 3.5 mEq/L (3.5-5.1); Sodium 139 mEq/L (136-145); Total Protein 6.4 g/dL (6.4-8.9); eGFR For African Americans > 60 (> 60); eGFR For Non-African Americans 60 (> 60)
[2021-10-17] MEDS: Insulin LISPRO 300 UNITS/3 ML VIAL SUBQ SCH ×4 (10:01→20:30)
[2021-10-17] MEDS: haloperidoL 5 MG TABLET PO SCH ×3 (10:08→20:22)
[2021-10-17] MEDS: FLUoxetine 20 MG CAPSULE PO SCH (10:09)
[2021-10-18 04:59] LABS: Basophils # 0.1 K/mcL (0.0-0.2); Basophils % 0.7 %; Eosinophils # 0.4 K/mcL (0.0-0.6); Eosinophils % 3.9 %; Hematocrit 31.9 % (35.3-44.9); Hemoglobin 10.5 g/dL (11.5-15.4); Immature Granulocytes % 0.7 % (0-4); Lymphocytes # 2.8 K/mcL (0.6-4.6); Lymphocytes % 29.9 %; Mean Corpuscular HGB Conc 32.9 g/dL (31.6-35.5); Mean Corpuscular Hemoglobin 30.1 pg (28.0-33.3); Mean Corpuscular Volume 91.4 fL (83.0-100.0); Monocytes # 0.7 K/mcL (0.0-1.3); Neutrophils # 5.2 K/mcL (1.6-8.9); Platelet Count 285 K/mcL (140-400); Red Blood Count 3.49 M/mcL (3.82-4.97); Segmented Neutrophils % 56.8 %; White Blood Count 9.2 K/mcL (4.3-11.1)
[2021-10-18] MEDS: Cefepime HCl 2,000 MG in 0.9 % Sodium Chloride 10 ML IVP SCH ×3 (05:12→21:15)
[2021-10-18 05:29] LABS: BUN/Creatinine Ratio 17 (6-26); Blood Urea Nitrogen 17 mg/dL (6-20); Calcium 8.6 mg/dL (8.6-10.3); Carbon Dioxide 26 mEq/L (23-29); Chloride 103 mEq/L (98-107); Glucose 148 mg/dL (70-105); Osmolality,Calculated 292 (280-300); Potassium 3.3 mEq/L (3.5-5.1); Sodium 139 mEq/L (136-145); eGFR For African Americans > 60 (> 60); eGFR For Non-African Americans 57 (> 60)
[2021-10-18] MEDS: Insulin LISPRO 300 UNITS/3 ML VIAL SUBQ SCH ×4 (07:28→21:17)
[2021-10-18] MEDS: haloperidoL 5 MG TABLET PO SCH ×2 (07:29→17:17)
[2021-10-18] MEDS: FLUoxetine 20 MG CAPSULE PO SCH (07:30)
[2021-10-18] MEDS: Cyanocobalamin (B-12) 1,000 MCG TABLET PO SCH (07:32)
[2021-10-18] MEDS: Ascorbic Acid 500 MG TABLET PO SCH (07:33)
[2021-10-18] MEDS: Multivit/Ca/Min/Fe/FA 1 TAB TABLET PO SCH (07:33)
[2021-10-18] MEDS ORDERED: Potassium Chloride Elixir 20 MEQ/15 ML UDC PO SCH (09:00)
[2021-10-19] MEDS: Cefepime HCl 2,000 MG in 0.9 % Sodium Chloride 10 ML IVP SCH ×2 (05:11→12:35)
[2021-10-19 05:55] LABS: Basophils # 0.1 K/mcL (0.0-0.2); Basophils % 0.7 %; Eosinophils # 0.4 K/mcL (0.0-0.6); Eosinophils % 5.4 %; Hematocrit 29.5 % (35.3-44.9); Hemoglobin 9.6 g/dL (11.5-15.4); Immature Granulocytes % 0.6 % (0-4); Lymphocytes # 2.4 K/mcL (0.6-4.6); Lymphocytes % 29.7 %; Mean Corpuscular HGB Conc 32.5 g/dL (31.6-35.5); Mean Corpuscular Volume 92.2 fL (83.0-100.0); Mean Platelet Volume 10.1 fL (9.4-12.4); Monocytes # 0.8 K/mcL (0.0-1.3); Monocytes % 9.4 %; Neutrophils # 4.5 K/mcL (1.6-8.9); Platelet Count 260 K/mcL (140-400); Red Cell Distribution Width 14.9 % (11.5-14.5); Segmented Neutrophils % 54.2 %; White Blood Count 8.2 K/mcL (4.3-11.1)
[2021-10-19 06:23] LABS: BUN/Creatinine Ratio 17 (6-26); Blood Urea Nitrogen 16 mg/dL (6-20); Calcium 8.7 mg/dL (8.6-10.3); Carbon Dioxide 27 mEq/L (23-29); Chloride 104 mEq/L (98-107); Glucose 154 mg/dL (70-105); Osmolality,Calculated 290 (280-300); Potassium 3.3 mEq/L (3.5-5.1); Sodium 138 mEq/L (136-145); eGFR For African Americans > 60 (> 60); eGFR For Non-African Americans > 60 (> 60)
[2021-10-19] MEDS ORDERED: Potassium Chloride Elixir 20 MEQ/15 ML UDC PO ONE (07:32)
[2021-10-19] MEDS: Multivit/Ca/Min/Fe/FA 1 TAB TABLET PO SCH (08:49)
[2021-10-19] MEDS: FLUoxetine 20 MG CAPSULE PO SCH (08:50)
[2021-10-19] MEDS: Ascorbic Acid 500 MG TABLET PO SCH (08:51)
[2021-10-19] MEDS: Insulin LISPRO 300 UNITS/3 ML VIAL SUBQ SCH ×3 (08:53→17:18)
[2021-10-19] MEDS ORDERED: haloperidoL 5 MG TABLET PO SCH (09:00)
[2021-10-19] MEDS: Cyanocobalamin (B-12) 1,000 MCG TABLET PO SCH (09:05)
[2021-10-19 18:46] VITALS: BP 107/64; PULSE 65; TEMP 97.6; O2SAT 94
== END 2021-10-19 19:44 | disposition home health service (06) | DRG 698 ==
LOC: 3ANU → SUATTDRO 23:21
PROVIDERS: ADMIT Internal Medicine; ATTEND Family Medicine